=== PATIENT | female | born 1960 | race Caucasian/White ===

== ENCOUNTER 2021-02-15 10:18 | Inpatient (IN) ==
[2021-02-15] MEDS ORDERED: MoRPHine SULFATE 4 MG/ML 1 ML CARP\\VIAL IV STA ×2 (11:46→15:37)
[2021-02-15] MEDS ORDERED: ONDANSETRON INJ 2 MG/ML 2 ML VIAL IV STA (11:46)
--- NOTE | 2021-02-15 11:52 | Emergency Department Note ---
History of Present Illness General Chief complaint: Back Injury/Pain Stated complaint: BACK PAIN Time Seen by Provider: 02/15/21 11:33 Source: patient Mode of arrival: ambulatory Limitations: no limitations History of Present Illness Maximum Pain Intensity: 10 This patient is a 60-year-old female who is status post lumbar surgery on Tuesday. This was done by Dr. Gasca. She tells me she had a significant disc protrusion at L3-4 on the left. She started having pain down her left leg again on Tuesday or Tuesday but got worse on Tuesday. It hurts when she moves. She does finish her course of steroids and started Neurontin yesterday. She is been using Ultram and Percocet for pain. She talk to Dr. Gsaca who sent her to the ER in 1 to get an MRI. He did call ahead. She has had no change in bowel or bladder function no dysuria hematuria she is had the Covid vaccine. No chest pain shortness of breath or abdominal pain. No shortness of breath. She is not driving Home Medications Medication Instructions Recorded Confirmed Type levothyroxine 75 mcg tablet 75 mcg PO QAM 01/14/20 02/15/21 History rizatriptan 10 mg disintegrating 10 mg PO Q2H PRN 01/14/20 02/15/21 History tablet (Maxalt-WEBBING SUPERVISOR) multivitamin 1 tab PO QAM 03/18/20 02/15/21 History rosuvastatin 5 mg tablet (Crestor) 5 mg PO HS 02/05/21 02/15/21 History oxycodone 5 mg tablet 5 mg PO Q6H PRN #20 tab 02/09/21 02/15/21 Rx tramadol 50 mg tablet 50 mg PO Q6H PRN #20 tab 02/09/21 02/15/21 Rx gabapentin 300 mg capsule 300 mg PO BID 02/15/21 02/15/21 History oxycodone 5 mg tablet 5 mg PO Q6H PRN #30 tab 02/17/21 Rx tramadol 50 mg tablet 50 mg PO Q6H PRN #30 tab 02/17/21 Rx Allergies Allergy/AdvReac Type Severity Reaction Status Date / Time Sulfa (Sulfonamide Allergy Intermediate rash Verified 02/09/21 07:03 Antibiotics) Past Med/Surg History Medical History (Updated 02/16/21 @ 12:26 by Marisa Asencio PA-C) Hx of basal cell carcinoma ARM/NOSE Hyperlipidemia Hypothyroidism Migraine Osteoarthritis Surgical History H/O breast biopsy 2018 right breast (BENIGN) H/O tubal ligation History of breast augmentation History of colonoscopy History of femoral hernia repair Left femoral hernia repair [place]03/25/20): [place] [facility] [place] of repair of ACL Left S/P left knee arthroscopy S/P Mohs surgery for basal cell carcinoma Family History Father Parkinson's disease Mother Lupus Stroke Grandmother (Paternal) Diabetes Breast cancer Grandmother (Maternal) Colorectal cancer Other No family history of adverse response to anesthesia Social History Smoking Status: Never smoker Second Hand Exposure: No; Hx Alcohol Use: Yes Alcohol type: beer and wine Hx Substance Use: No Preferred Language: Martiniquais Communication Ability: Effective End User Consultant Required: No Beliefs That Will Affect Care: None marital status: Current Living Situation: Spouse current occupational status: employed current occupation: RN How many Children do You have: 2 Other Information That Helps Us Care for You: No Feels Safe at Home: Yes Safety Concerns: Feels Safe At This Time Assistive Devices: None Review of Systems A total of 10 systems reviewed and were otherwise negative Physical Exam Vital Signs Vital Signs - 24 hr 02/15/21 10:23 02/15/21 12:11 Temperature 36.8 C Temperature Source Temporal Artery Scan Pulse Rate 87 Pulse Rate [Finger] 79 Respiratory Rate 18 18 Blood Pressure 152/83 H Blood Pressure [Right Arm] 134/79 Blood Pressure Mean 106 Blood Pressure Mean [Right Arm] 97 Blood Pressure Position Sitting Pulse Oximetry 98 100 Oxygen Delivery Method Room Air Room Air Sepsis Recent Fever Within 48 Hours No Sepsis New/Unexplained Change in Mental Status No Sepsis Action Taken by Nursing No Action Required General: Well developed well nourished middle-aged female who appears in no acute distress, breathing comfortably on room air. Normal speech HEENT: Normal cephalic atraumatic. Pupils are equal round and reactive to light. Extraocular movements are intact. Oropharynx is pink with moist mucous membranes. No swelling of the mouth lips or tongue. Neck: Supple with a midline trachea. No meningeal signs or stiffness, no JVD or bruits. No Stridor. Chest: Clear to auscultation bilaterally. No wheezes or rhonchi. No increased work of breathing. Heart: Regular rate and rhythm without murmurs or gallops. Abdomen: Soft nontender, nondistended without rebound guarding or rigidity. Extremities: No cyanosis clubbing or edema. No calf tenderness or assymetry Spine/Back. Non tender to palpation. No CVA tenderness. Normal-appearing healing postop incision in the left central lower lumbar area. Intact Steri-S trips. no redness warmth or fluctuance Skin: Good turgor without rashes. Neurologic exam: Cranial nerves two through 12 are intact. Motor and sensation are intact and symmetrical throughout. Normal motor and sensation in the legs however she feels subjectively numb on the left anterior thigh compared to the right. Her patellar reflex may be slightly diminished on the left compared to the right but good Achilles reflexes Course Administered Medications Discontinued Medications Bupivacaine HCl (Bupivacaine 0.5 % 5 Mg/1 Ml Mpf 30ml Vial) Confirm Administered Dose 30 ml .ROUTE .STK-MED ONE Stop: 02/16/21 12:17 Last Admin: 02/16/21 13:05 Dose: 25 ml Documented by: [id number] Cefazolin Sodium (Cefazolin 250 Mg/Ml 1 Gm Vial) Confirm Administered Dose 1,000 mg .ROUTE .STK-MED ONE Stop: 02/16/21 12:17 Last Admin: 02/16/21 13:29 Dose: 1,000 mg Documented by: [id number] Epinephrine HCl (Epinephrine Inj 1 Mg/Ml Amp) Confirm Administered Dose 1 mg .ROUTE .STK-MED ONE Stop: 02/16/21 12:17 Last Admin: 02/16/21 13:05 Dose: 0.15 mg Documented by: [id number] Gabapentin (Gabapentin 300 Mg Cap) 300 mg PO BID MIGUEL Stop: 03/17/21 20:59 Last Admin: 02/18/21 08:32 Dose: 300 mg Documented by: [id number] Admin: 02/17/21 20:19 Dose: 300 mg Documented by: [id number] Admin: 02/17/21 10:21 Dose: 300 mg Documented by: [id number] Admin: 02/16/21 20:21 Dose: 300 mg Documented by: [id number] Admin: 02/16/21 10:35 Dose: Not Given Documented by: [id number] Admin: 02/15/21 20:57 Dose: 300 mg Documented by: [id number] Gadobutrol (Gadobutrol 30ml Vial) 6.8 ml IV ONCE ONE Stop: 02/15/21 13:59 Last Admin: 02/15/21 13:59 Dose: 6.8 ml Documented by: [id number] Hydromorphone HCl (Hydromorphone Inj 1 Mg/Ml Syringe) 1 mg IV Q3H PRN PRN Reason: severe pain (scale 7-10) Stop: 03/01/21 18:50 Last Admin: 02/16/21 10:12 Dose: 1 mg Documented by: [id number] Admin: 02/16/21 05:56 Dose: 1 mg Documented by: [id number] Admin: 02/15/21 20:28 Dose: 1 mg Documented by: [id number] Hydromorphone HCl (Hydromorphone Inj 1 Mg/Ml Syringe) 0.25 mg IV Q5M PRN PRN Reason: PACU Use Only-Pain Stop: 02/16/21 20:26 Last Admin: 02/16/21 15:10 Dose: 0.25 mg Documented by: [id number] Admin: 02/16/21 15:00 Dose: 0.25 mg Documented by: [id number] Admin: 02/16/21 14:53 Dose: 0.25 mg Documented by: [id number] Admin: 02/16/21 14:44 Dose: 0.25 mg Documented by: [id number] Cefazolin Sodium (Ancef 2000mg) 2,000 mg in 15 mls @ 3.75 mls/min IV PREOP MIGUEL; Protocol Stop: 02/17/21 05:59 Last Admin: 02/16/21 12:36 Dose: 3.75 mls/min Documented by: [id number] Lactated Ringer's (Lr) 1,000 mls @ 100 mls/hr IV .Q10H MIGUEL Stop: 03/17/21 18:50 Last Infusion: 02/17/21 19:25 Dose: 0 mls/hr Documented by: [id number] Admin: 02/17/21 10:21 Dose: Not Given Documented by: [id number] Infusion: 02/17/21 09:06 Dose: 100 mls/hr Documented by: [id number] Admin: 02/16/21 22:59 Dose: 100 mls/hr Documented by: [id number] Infusion: 02/16/21 16:16 Dose: 100 mls/hr Documented by: [id number] Admin: 02/16/21 15:56 Dose: Not Given Documented by: [id number] Admin: 02/16/21 06:16 Dose: 100 mls/hr Documented by: [id number] Infusion: 02/16/21 06:16 Dose: 100 mls/hr Documented by: [id number] Admin: 02/15/21 20:58 Dose: 100 mls/hr Documented by: [id number] Cefazolin Sodium (Ancef 1000mg) 1,000 mg in 7.5 mls @ 2.5 mls/min IV Q8H MIGUEL; Protocol Stop: 02/17/21 04:32 Last Admin: 02/17/21 05:40 Dose: 2.5 mls/min Documented by: [id number] Admin: 02/16/21 20:20 Dose: 2.5 mls/min Documented by: [id number] Dexamethasone 8 mg/ Syringe 2 mls @ 1 mls/min IV DAILY MIGUEL Stop: 02/19/21 09:01 Last Admin: 02/18/21 08:31 Dose: 1 mls/min Documented by: [id number] Admin: 02/17/21 09:18 Dose: 1 mls/min Documented by: [id number] Lactated Ringer's (Lr) 1,000 mls @ 100 mls/hr IV .Q10H MIGUEL Stop: 03/18/21 15:49 Last Admin: 02/17/21 07:21 Dose: Not Given Documented by: [id number] Admin: 02/16/21 16:42 Dose: Not Given Documented by: [id number] Levothyroxine Sodium (Levothyroxine Sodium 75 Mcg Tablet) 75 mcg PO DAILYBB MIGUEL Stop: 03/18/21 06:29 Last Admin: 02/18/21 06:13 Dose: 75 mcg Documented by: [id number] Admin: 02/17/21 05:59 Dose: 75 mcg Documented by: [id number] Admin: 02/16/21 04:36 Dose: Not Given Documented by: [id number] Lorazepam (Lorazepam 0.5 Mg Tab) 0.5 mg PO Q8H PRN PRN Reason: sedation/anxiety Stop: 03/17/21 18:50 Last Admin: 02/17/21 20:27 Dose: 0.5 mg Documented by: [id number] Admin: 02/15/21 23:47 Dose: 0.5 mg Documented by: [id number] Miscellaneous ( Floseal Hemostatic Matrix 10ml) 20 ml TOP ONCE ONE Stop: 02/16/21 13:31 Last Admin: 02/16/21 14:01 Dose: 20 ml Documented by: [id number] Morphine Sulfate (Morphine Sulfate 4 Mg/Ml 1 Ml Carp\Vial) 4 mg IV NOW STA Stop: 02/15/21 11:47 Last Admin: 02/15/21 12:06 Dose: 4 mg Documented by: [id number] Morphine Sulfate (Morphine Sulfate 4 Mg/Ml 1 Ml Carp\Vial) 4 mg IV NOW STA Stop: 02/15/21 15:38 Last Admin: 02/15/21 16:07 Dose: 4 mg Documented by: [id number] Multivitamins (Multivitamin Tab) 1 tab PO QAM [facility] Stop: 03/18/21 08:59 Last Admin: 02/18/21 08:32 Dose: 1 tab Documented by: [id number] Admin: 02/17/21 09:18 Dose: 1 tab Documented by: [id number] Admin: 02/16/21 10:36 Dose: Not Given Documented by: [id number] Ondansetron HCl (Ondansetron Inj 2 Mg/Ml 2 Ml Vial) 4 mg IV NOW STA Stop: 02/15/21 11:47 Last Admin: 02/15/21 12:06 Dose: 4 mg Documented by: [id number] Ondansetron HCl (Ondansetron Inj 2 Mg/Ml 2 Ml Vial) 4 mg IV Q6H PRN PRN Reason: Nausea &/or Vomiting Stop: 03/17/21 18:50 Last Admin: 02/16/21 10:14 Dose: 4 mg Documented by: [id number] Oxycodone HCl (Oxycodone Hcl Ir 5 Mg Tab (Immediate Release)) 5 - 10 mg PO Q4H PRN PRN Reason: mod to severe pain Stop: 03/01/21 18:50 Last Admin: 02/18/21 03:05 Dose: 10 mg Documented by: [id number] Admin: 02/17/21 20:27 Dose: 5 mg Documented by: [id number] Admin: 02/15/21 23:44 Dose: 10 mg Documented by: [id number] Polyethylene Glycol (Polyethylene (Miralax) 17 Gm Pack) 17 gm PO Q6 MIGUEL Stop: 03/19/21 05:59 Last Admin: 02/18/21 06:13 Dose: 17 gm Documented by: [id number] Admin: 02/18/21 01:02 Dose: 17 gm Documented by: [id number] Admin: 02/17/21 18:06 Dose: 17 gm Documented by: [id number] Admin: 02/17/21 12:57 Dose: 17 gm Documented by: [id number] Admin: 02/17/21 05:39 Dose: 17 gm Documented by: [id number] Rosuvastatin Calcium (Rosuvastatin Calcium 5 Mg Tab) 5 mg PO HS MIGUEL Stop: 03/17/21 20:59 Last Admin: 02/17/21 20:19 Dose: 5 mg Documented by: [id number] Admin: 02/16/21 21:23 Dose: 5 mg Documented by: [id number] Admin: 02/15/21 20:57 Dose: 5 mg Documented by: [id number] Senna/Docusate Sodium (Docusate Sodium/Senna 50/8.6mg Tab) 2 tab PO HS MIGUEL Stop: 03/17/21 20:59 Last Admin: 02/17/21 20:19 Dose: 2 tab Documented by: [id number] Admin: 02/16/21 20:20 Dose: 2 tab Documented by: [id number] Admin: 02/15/21 20:57 Dose: 2 tab Documented by: [id number] Senna/Docusate Sodium (Docusate Sodium/Senna 50/8.6mg Tab) 2 tab PO HS MIGUEL Stop: 03/18/21 20:59 Last Admin: 02/17/21 20:29 Dose: Not Given Documented by: [id number] Admin: 02/16/21 20:20 Dose: Not Given Documented by: [id number] Tramadol HCl (Tramadol Hcl 50 Mg Tablet) 50 - 100 mg PO Q4H PRN PRN Reason: Moderate-Severe pain & Pre PT Stop: 03/17/21 18:50 Last Admin: 02/18/21 11:05 Dose: 100 mg Documented by: [id number] Admin: 02/17/21 22:22 Dose: 50 mg Documented by: [id number] Admin: 02/17/21 12:57 Dose: 100 mg Documented by: [id number] Admin: 02/17/21 05:39 Dose: 100 mg Documented by: [id number] Admin: 02/16/21 20:30 Dose: 100 mg Documented by: [id number] Admin: 02/16/21 16:46 Dose: 100 mg Documented by: [id number] Medical Decision Making Differential Diagnosis Postop infection, postop complication, hematoma, disc disease, electrolyte or metabolic abnormality Medical Records Attestation: I reviewed the patient's medical records. Home Medications Current Medication List: was personally reviewed by me Laboratory Data Attestation: I reviewed the patient's lab results. Result diagrams: 02/18/21 08:49 02/18/21 08:49 Lab Results 02/15/21 02/15/21 02/15/21 Range/Units 12:03 12:03 12:03 WBC 8.29 (4.8-10.8) K/uL RBC 4.94 (4.2-5.4) M/uL Hgb 13.8 (12.0-16.0) g/dL Hct 42.1 (37-47) % MCV 85.2 (80-100) fL MCH 27.9 (25-34) pg MCHC 32.8 (32-36) g/dL RDW Std Deviation 40.7 (36.4-46.3) fL RDW Coeff of Lynette 13.1 (11.5-14.5) % Plt Count 272 (130-400) K/uL MPV 9.8 (7.4-10.4) fL Immature Gran % (Auto) 0.7 % Neut % (Auto) 61.0 % Lymph % (Auto) 28.5 % [place] % (Auto) 7.5 % Eos % (Auto) 1.9 % Baso % (Auto) 0.4 % Neut # (Auto) 5.06 (1.4-6.5) K/uL Lymph # (Auto) 2.36 (1.2-3.4) K/uL [place] # (Auto) 0.62 H (0.11-0.59) K/uL Eos # (Auto) 0.16 (0-0.5) K/uL Baso # (Auto) 0.03 (0-0.2) K/uL Immature Gran # (Auto) 0.06 H (0.00-0.02) K/uL Sodium 136 (136-145) mmol/L Potassium 4.0 (3.5-5.1) mmol/L Chloride 105 (98-107) mmol/L Carbon Dioxide 29 (21-32) mmol/L Anion Gap 2.0 L (3-11) BUN 14 (7-18) mg/dl Creatinine 0.90 (0.6-1.2) mg/dl Est Cr Clr Drug Dosing 62.5 ml/min Est GFR ( Amer) 80.0 ml/min Est GFR (Non-Af Amer) 69.0 ml/min BUN/Creatinine Ratio 15.6 (10-20) Glucose 120 H (70-99) mg/dl Calcium 9.4 (8.5-10.1) mg/dl Total Bilirubin 0.5 (0.2-1) mg/dl AST 21 (15-37) U/L ALT 45 (12-78) U/L Alkaline Phosphatase 87 (45-117) U/L C-Reactive Protein 0.37 H (0-0.29) mg/dl Total Protein 7.8 (6.4-8.2) gm/dl Albumin 4.1 (3.4-5.0) gm/dl Globulin 3.7 (2.5-4.0) gm/dl Albumin/Globulin Ratio 1.1 (0.9-2) Lipase 91 (73-393) U/L Urine Color Yellow Urine Appearance Clear (Clear) Urine pH 7.5 (4.5-7.5) Ur Specific [place] 1.006 (1.000-1.030) Urine Protein Negative (Negative) Urine Glucose (UA) Negative (Negative) Urine Ketones Negative (Negative) Urine Blood Negative (Negative) Urine Nitrite Negative (Negative) Urine Bilirubin Negative (Negative) Urine Urobilinogen Negative (Negative) Ur Leukocyte Esterase Negative (Negative) Imaging Data Radiologist's Impression: Lumbar Spine MRI 02/15/21 11:46 MR lumbar spine wo/w con CLINICAL HISTORY: Status post discectomy this past Tuesday at L3-L4. Now complaining of low back pain with left leg pain. TECHNIQUE: 3 plane localizer images, sagittal T2, sagittal T1, sagittal STIR, axial T1, axial T2 along with postcontrast axial T1 and sagittal T1 fat- saturated sequences were obtained of the lumbar spine, before and after intravenous administration of 12 mL of MultiHance. Comparison: None available at the time of this dictation. FINDINGS: The alignment is anatomical. Multilevel degenerative changes are seen. L1-L2: No neuroforaminal or canal stenosis. L2-L3: Small posterior disc bulge results in mild spinal stenosis. No neuroforaminal stenosis is seen. L3-L4: Postsurgical changes of discectomy are seen. There is relief of previously noted left neuroforaminal stenosis. A small posterior disc bulge results in mild canal stenosis. L4-L5: Midline posterior disc bulge results in moderate spinal stenosis. No neuroforaminal stenosis. L5-S1: No neuroforaminal or canal stenosis. The spinal ligaments are intact, without evidence of disruption or abnormal signal intensity. The spinal cord is normal in signal intensity and there is no evidence of cord contusion. There is no evidence of an extradural, intradural, extramedullary or intramedullary lesion. Postoperative edema is seen in the posterior midline and left paraspinal musculature. Incidental note is made of parapelvic cysts in the bilateral kidneys. IMPRESSION: Status post discectomy with overall improvement in the left neuroforaminal stenosis. There is surrounding soft tissue edema at the surgical site which may potentially result in transient impingement on the L3-L4 left spinal root. No evidence of infectious abnormality. ACT 112: Negative or not required by law. Electronically signed by: Ian Jin M.D. 02/15/2021 2:26 PM MDM Narrative This patient comes in complaining of back pain radiating down the left leg. She is postop. She called and talked to Dr. Gasca who sent her to the ER for evaluation of an MRI. I asked established she was given morphine 4 mg IV and Zofran 4 mg IV for pain and nausea management. She was placed on a cafeteria monitor. I did order blood work and an MRI. She has no white count or fever discussed infection. She has normal electrolyte and metabolic testing. Urinaly sis does not suggest a UTI. The MRI does show some swelling around the L3-4 nerve root. I discussed the case with Dr. Gasca who promptly came in and saw the patient. He is concerned about recurrent disc is going to admit the patient for further operative care. Continuous cardiac monitoring: Given the fact that she was getting narcotic pain medication an order was placed in EMR for continuous cardiac monitoring. Upon interpretation patient was reviewed normal sinus rhythm with a rate of 75 Impression & Plan Back pain, Status post lumbar discectomy Discharge Plan Visit Data Chief Complaint: Back Injury/Pain Stated Complaint: BACK PAIN ED Provider: Devon Esquivel Discharge Problem: Back pain, Status post lumbar discectomy Patient Disposition: Admitted As Inpatient Discharge Instructions Interventions: ED Discharge Assessment Last Done: 02/15/21 18:21 Discharge Problem: Back pain Qualifiers: Back pain location: low back pain Chronicity: acute Back pain laterality: left Sciatica presence: with sciatica Sciatica laterality: sciatica of left side Qualified Code(s): M54.42 - Lumbago with sciatica, left side
[2021-02-15 12:12] LABS: Basophils # (auto) 0.03 K/uL (0-0.2); Basophils % (auto) 0.4 %; Eosinophils # (auto) 0.16 K/uL (0-0.5); Eosinophils % (auto) 1.9 %; Hematocrit (blood only) 42.1 % (37-47); Hemoglobin 13.8 g/dL (12.0-16.0); Immature Granulocytes # (auto) 0.06 K/uL (0.00-0.02); Immature Granulocytes % (auto) 0.7 %; Lymphocytes # (auto) 2.36 K/uL (1.2-3.4); Lymphocytes % (auto) 28.5 %; Mean Corpuscular Hemoglobin 27.9 pg (25-34); Mean Corpuscular Hgb Conc 32.8 g/dL (32-36); Mean Corpuscular Volume 85.2 fL (80-100); Mean Platelet Volume 9.8 fL (7.4-10.4); Monocytes # (auto) 0.62 K/uL (0.11-0.59); Monocytes % (auto) 7.5 %; Neutrophils # (auto) 5.06 K/uL (1.4-6.5); Platelet Count 272 K/uL (130-400); RDW Coefficient of Variation 13.1 % (11.5-14.5); RDW Standard Deviation 40.7 fL (36.4-46.3); Red Blood Count 4.94 M/uL (4.2-5.4); White Blood Count 8.29 K/uL (4.8-10.8)
[2021-02-15 12:20] LABS: Appearance Urine Clear (Clear); Bilirubin Urine Negative (Negative); Blood Urine Negative (Negative); Color Urine Yellow; Glucose Urine UA Negative (Negative); Ketones Urine Negative (Negative); Leukocyte Esterase Urine Negative (Negative); Nitrite Urine Negative (Negative); Protein Urine Negative (Negative); Specific Gravity Urine 1.006 (1.000-1.030); Urobilinogen Urine Negative (Negative); pH Urine 7.5 (4.5-7.5)
[2021-02-15 12:31] LABS: Albumin Level 4.1 gm/dl (3.4-5.0); BUN Creatinine Ratio 15.6 (10-20); Calcium 9.4 mg/dl (8.5-10.1); Creatinine Clr Calc Pharmacy 62.5 ml/min
[2021-02-15 12:33] LABS: Albumin Globulin Ratio 1.1 (0.9-2); Bilirubin,Total 0.5 mg/dl (0.2-1); C Reactive Protein 0.37 mg/dl (0-0.29); Globulin 3.7 gm/dl (2.5-4.0); Total Protein 7.8 gm/dl (6.4-8.2)
[2021-02-15] MEDS ORDERED: GADOBUTROL 30ML VIAL IV ONE (13:58)
--- NOTE | 2021-02-15 14:27 | Magnetic Resonance Report ---
MR lumbar spine wo/w con CLINICAL HISTORY: Status post discectomy this past Tuesday at L3-L4. Now complaining of low back pain with left leg pain. TECHNIQUE: 3 plane localizer images, sagittal T2, sagittal T1, sagittal STIR, axial T1, axial T2 sujit g with postcontrast axial T1 and sagittal T1 fat-saturated sequences were obtained of the lumbar spin e, before and after intravenous administration of 12 mL of MultiHance. Comparison: None available at the time of this dictation. FINDINGS: The alignment is anatomical. Multilevel degenerative changes are seen. L1-L2: No neuroforaminal or canal stenosis. L2-L3: Small posterior disc bulge results in mild spinal stenosis. No neuroforaminal stenosis is seen . L3-L4: Postsurgical changes of discectomy are seen. There is relief of previously noted left neurofor aminal stenosis. A small posterior disc bulge results in mild canal stenosis. L4-L5: Midline posterior disc bulge results in moderate spinal stenosis. No neuroforaminal stenosis. L5-S1: No neuroforaminal or canal stenosis. The spinal ligaments are intact, without evidence of disruption or abnormal signal intensity. The spi nal cord is normal in signal intensity and there is no evidence of cord contusion. There is no eviden ce of an extradural, intradural, extramedullary or intramedullary lesion. Postoperative edema is seen in the posterior midline and left paraspinal musculature. Incidental note is made of parapelvic cyst s in the bilateral kidneys. IMPRESSION: Status post discectomy with overall improvement in the left neuroforaminal stenosis. There is surroun ding soft tissue edema at the surgical site which may potentially result in transient impingement on the L3-L4 left spinal root. No evidence of infectious abnormality. ACT 112: Negative or not required by law. Electronically signed by: Ian Jin M.D. 02/15/2021 2:26 PM
--- NOTE | 2021-02-15 16:00 | History & Physical Report ---
Date of Service February 15, 2021 Assessment & Plan (1) Lumbar disc herniation with radiculopathy: Plan: Assessment recurrent disc herniation L3-L4 on the left with foraminal encroachment. Plan at a lengthy discussion today with the patient and her reviewing her updated MRI findings and clinical presentation. At this time the MRI does continue to demonstrate evidence of foraminal disc herniation. Postoperative course is consistent with this as she had several days of marked improvement of her pain with sudden onset of severe pain and weakness. She does presents with significant neuro deficit to left lower extremity. I discussed treatment options with consist of continued pain management versus revision surgery. Surgery require complete discectomy and fusion L3-L4. In light of her recurrent disc this would be the safest way to approach her problem for definitive treatment. Risk benefits pros cons of turns were outlined in detail. I will admit her to the hospital today she will be made n.p.o. after midnight we will try for surgery tomorrow. History of Present Illness Chief Complaint: Left leg pain with weakness Primary Care Provider: Layla Duran MD This this is a 60-year-old female status post far lateral discectomy L3-L4 on the left approximate week ago. Postoperatively she was doing well for approximately 3 days but then had the sudden onset of severe pain with now developing weakness into the left quadricep. She is unable to ambulate and ascend or descend stairs secondary to weakness. The pain is incapacitating nature. She is been taking Neurontin oxycodone and tramadol without any improvement in pain or function. The right lower extremity asymptomatic. Allergies Allergy/AdvReac Type Severity Reaction Status Date / Time Sulfa (Sulfonamide Allergy Intermediate rash Verified 02/09/21 07:03 Antibiotics) Home Medications Medication Instructions Recorded Confirmed Type levothyroxine 75 mcg tablet 75 mcg PO QAM 01/14/20 02/15/21 History rizatriptan 10 mg disintegrating 10 mg PO Q2H PRN 01/14/20 02/15/21 History tablet (Maxalt-SILVER LAP MACHINE TENDER) multivitamin 1 tab PO QAM 03/18/20 02/15/21 History rosuvastatin 5 mg tablet (Crestor) 5 mg PO HS 02/05/21 02/15/21 History oxycodone 5 mg tablet 5 mg PO Q6H PRN #20 tab 02/09/21 02/15/21 Rx tramadol 50 mg tablet 50 mg PO Q6H PRN #20 tab 02/09/21 02/15/21 Rx gabapentin 300 mg capsule 300 mg PO BID 02/15/21 02/15/21 History Past Med/Surg History Medical History Hx of basal cell carcinoma ARM/NOSE Hyperlipidemia Hypothyroidism Migraine Osteoarthritis Surgical History H/O breast biopsy 2011, 2018 right breast (BENIGN) H/O tubal ligation History of breast augmentation History of colonoscopy History of femoral hernia repair Left femoral hernia repair (03/25/20): LMA#4 at [facility] [place] History of repair of ACL Left S/P left knee arthroscopy S/P Mohs surgery for basal cell carcinoma Family History Father Parkinson's disease Mother Lupus Stroke Grandmother (Paternal) Diabetes Breast cancer Grandmother (Maternal) Colorectal cancer Other No family history of adverse response to anesthesia Social History Smoking Status: Never smoker Second Hand Exposure: No; Hx Alcohol Use: Yes Alcohol type: beer and wine Preferred Language: Urugu[place] Communication Ability: Effective Butcher Supervisor Required: No Beliefs That Will Affect Care: None marital status: Current Living Situation: Spouse current occupational status: employed current occupation: RN How many Children do You have: 3 Feels Safe at Home: Yes Assistive Devices: None Physical Exam Physical Exam: Patient is in obvious distress. She prefers to have her left leg propped up on a pillow while lying supine. She exhibits +5-5 right dorsiflexion extensor pollicis longus quadricep sensory intact on the left she has a 3+/5 left quadriceps with a 5 or 5 extensor hallucis longus dorsiflexion plantarflexion. Deep to reflexes absent. Results & Data ([facility]) Vital Signs (Past 12 Hours) Vital Signs Temp Pulse Pulse Resp BP BP Pulse Ox 02/15/21 14:12 85 14 112/72 98 02/15/21 12:48 73 14 137/83 100 02/15/21 12:11 79 18 134/79 100 02/15/21 10:23 36.8 C 87 18 152/83 H 98 Code Status & VTE Plan VTE Prophylaxis Plan VTE Prophylaxis will be ordered: Yes
[2021-02-15] MEDS ORDERED: NALOXONE HCL 0.4 MG/1 ML VIAL/CARP IV PRN (18:51)
[2021-02-15] MEDS ORDERED: HYDROmorphone INJ 0.5 MG/0.5 ML SYR IV PRN (18:51)
[2021-02-15] MEDS ORDERED: ONDANSETRON INJ 2 MG/ML 2 ML VIAL IV PRN (18:51)
[2021-02-15] MEDS ORDERED: PROMETHAZINE HCL 12.5 MG in SODIUM CHLORIDE 0.9% 50 ML IV PRN (18:51)
[2021-02-15] MEDS ORDERED: LORazepam 0.5 MG/1 ML VIAL IV PRN (18:51)
[2021-02-15] MEDS ORDERED: hydrOXYzine HCl 25 MG TAB PO PRN (18:51)
[2021-02-15] MEDS ORDERED: ALUMINUM/MAGNESIUM SUSP 30 ML UDC PO PRN (18:51)
[2021-02-15] MEDS ORDERED: MAGNESIUM HYDROXIDE SUSP 30 ML UDC PO PRN (18:51)
[2021-02-15] MEDS ORDERED: ACETAMINOPHEN 1,000 MG/100 ML VIAL IV PRN (18:51)
[2021-02-15] MEDS ORDERED: diphenhydrAMINE Capsule 25 MG CAP PO PRN (18:51)
[2021-02-15] MEDS ORDERED: ACETAMINOPHEN 500 MG TAB PO PRN (18:51)
[2021-02-15] MEDS ORDERED: METOCLOPRAMIDE HCL INJ 5 MG/ML 2 ML VIAL IV PRN (18:51)
[2021-02-15] MEDS ORDERED: ONDANSETRON 4 MG OD TAB PO PRN (18:51)
--- NOTE | 2021-02-15 19:16 | Anesthesiology Consultation ---
Date of Service February 15, 2021 Assessment & Plan Chart Review Chart Review: Acceptable Risk for Surgery and Patient NOT seen in Pre Admission Testing Consults Requested none ASA ASA2 Proposed Anesthesia Anesthesia Type: General Additional Comments: covi test negative History Height/Weight Height: 5 ft 4 in Weight: 68.7 kg Allergies Allergy/AdvReac Type Severity Reaction Status Date / Time Sulfa (Sulfonamide Allergy Intermediate rash Verified 02/09/21 07:03 Antibiotics) Medications Home Medications Medication Instructions Recorded Confirmed Last Taken levothyroxine 75 mcg tablet 75 mcg PO QAM 01/14/20 02/15/21 02/15/21 rizatriptan 10 mg disintegrating 10 mg PO Q2H PRN 01/14/20 02/15/21 Unknown tablet (Maxalt-[employer]) multivitamin 1 tab PO QAM 03/18/20 02/15/21 02/15/21 rosuvastatin 5 mg tablet (Crestor) 5 mg PO HS 02/05/21 02/15/21 02/14/21 oxycodone 5 mg tablet 5 mg PO Q6H PRN #20 tab 02/09/21 02/15/21 02/15/21 tramadol 50 mg tablet 50 mg PO Q6H PRN #20 tab 02/09/21 02/15/21 02/14/21 gabapentin 300 mg capsule 300 mg PO BID 02/15/21 02/15/21 02/14/21 Past Medical History Medical History Hx of basal cell carcinoma ARM/NOSE Hyperlipidemia Hypothyroidism Migraine Osteoarthritis Exercise / Class Metabolic Activity II 4-5 Yardwork/Stairs/Walk up hill Past Family History Family History Father Parkinson's disease Mother Lupus Stroke Grandmother (Paternal) Diabetes Breast cancer Grandmother (Maternal) Colorectal cancer Other No family history of adverse response to anesthesia Past Surgical History Surgical History H/O breast biopsy 2011, 2018 right breast (BENIGN) H/O tubal ligation History of breast augmentation History of colonoscopy History of femoral hernia repair Left femoral hernia repair (03/25/20): LMA#4 at [facility] History of repair of ACL Left S/P left knee arthroscopy S/P Mohs surgery for basal cell carcinoma Past Anesthesia History No Hx of Anesthesia Complications and No Family Hx of Anesthesia Complications History of PONV No Hx of PONV and No Hx of Motion Sickness Social History Smoking Status: Never smoker Hx Alcohol Use: Yes Alcohol type: beer and wine alcohol intake frequency: a few times a week substance use type: does not use Physical Exam Vital Signs Last Vital Signs Temp 36.8 C 02/15/21 10:23 Pulse 79 02/15/21 17:58 Resp 14 02/15/21 17:58 BP 114/72 02/15/21 17:58 Pulse Ox 97 02/15/21 17:58 Testing Laboratory Results 02/15/21 12:03 02/15/21 12:03 Urine Color Yellow 02/15/21 12:03 Urine Appearance Clear (Clear) 02/15/21 12:03 Urine pH 7.5 (4.5-7.5) 02/15/21 12:03 Ur Specific [place] 1.006 (1.000-1.030) 02/15/21 12:03 Urine Protein Negative (Negative) 02/15/21 12:03 Urine Glucose (UA) Negative (Negative) 02/15/21 12:03 Urine Ketones Negative (Negative) 02/15/21 12:03 Urine Nitrite Negative (Negative) 02/15/21 12:03 Ur Leukocyte Esterase Negative (Negative) 02/15/21 12:03 Electrocardiogram Date: 12/15/20 Findings: + NSR @ (at 81) Chest X-Ray Date: 12/15/20 Findings: + NAD
[2021-02-15] MEDS ORDERED: RIZATRIPTAN BENZOATE MLT 10 MG TAB PO PRN (19:45)
[2021-02-15] MEDS: HYDROmorphone INJ 1 MG/ML SYRINGE IV PRN (20:28)
[2021-02-15] MEDS: ROSUVASTATIN CALCIUM 5 MG TAB PO SCH (20:57)
[2021-02-15] MEDS: GABAPENTIN 300 MG CAP PO SCH (20:57)
[2021-02-15] MEDS: DOCUSATE SODIUM/SENNA 50/8.6MG TAB PO SCH (20:57)
[2021-02-15] MEDS: LACTATED RINGER'S 1,000 ML IV SCH (20:58)
--- NOTE | 2021-02-15 23:12 | Consultation Report ---
DATE OF CONSULT: 02/15/2021. CHIEF COMPLAINT: Back pain. HISTORY OF PRESENT ILLNESS: This is a 60-year-old female with past medical history significant for hypothyroidism, hyperlipidemia, osteoarthritis, history of Raynaud's phenomenon, who was admitted for elective back surgery. The patient is having back pain since last one year and also having bilateral lower extremity weakness, but she is able to ambulate okay.Recently had back surgery for lumbar disc herniation seems the disc bulge recurred and planning for repeat surgery in am. Denies any chest pain, no shortness of breath, no cough, no nausea, no vomiting, no abdominal pain, no headache, no blurred visions, no earache, no sore throat. Normal bowel and bladder movements. ALLERGIES: SULFA ANTIBIOTICS. PAST MEDICAL HISTORY: As mentioned above. PAST SURGICAL HISTORY: Breast biopsy, bilateral breast enhancement. MEDICATIONS: The patient is on gabapentin 300 mg p.o. b.i.d., levothyroxine 75 mcg p.o. daily, multivitamin one tablet p.o. daily, oxycodone 5 mg p.o. q. 6 hours p.r.n., rizatriptan 10 mg p.r.n., Crestor 5 mg p.o. at bedtime, tramadol 50 mg p.o. q. 6 hours p.r.n. FAMILY HISTORY: Significant for paternal grandmother with breast cancer. SOCIAL HISTORY: , no smoking. Alcohol occasional. No drug use. REVIEW OF SYSTEMS: As per HPI. Rest of review of systems is negative. PHYSICAL EXAMINATION: GENERAL: The patient is of moderate build, not in acute distress. VITAL SIGNS: Temperature 36.8, pulse 79, respiratory rate 14, blood pressure 114/72, oxygen 97% on room air. HEENT: Head is atraumatic. NECK: No JVD or neck masses. CARDIOVASCULAR: S1 and S2 heard. Regular rate and rhythm. No murmur, no gallop. RESPIRATORY SYSTEM: Normal AP diameter. No accessory muscle use. No wheezing, no crackles. ABDOMEN: Soft, bowel sounds present, nontender, no distention. CENTRAL NERVOUS SYSTEM: Alert and awake. Speech is clear. No facial droop. Obeys simple commands. Moves extremities. EXTREMITIES: Right and left lower extremity weakness present. No edema, no erythema seen. LABORATORY DATA: WBC 8.2, hemoglobin 13.8, hematocrit 42.1, platelets 272. Sodium 136, potassium 4, chloride 105, bicarb 29, BUN 14, creatinine 0.9, serum glucose 120, calcium 9.4, total bilirubin 0.5, AST 21, ALT 45, alkaline phosphatase 87. C-reactive protein 0.3, lipase 91. Urinalysis negative. SARS-CoV-2 PCR negative. IMAGING DATA: Lumbar spine MRI without and with contrast, status post discectomy with overall improvement of the left neuroforaminal stenosis surrounding soft tissue edema at the surgical site, which may potentially result in transient impingement on L3-L4 spinal fluid. No evidence of infectious abnormality. ASSESSMENT AND PLAN: 1. Recurrent disk herniation. Plan for surgery tomorrow. The patient should be at acceptable for risk to proceed with surgery. Further management as per Orthopedics. 2. Hyperlipidemia: Continue statin. 3. Hypothyroidism. Continue Synthroid. 4. Deep venous thrombosis prophylaxis. DISPOSITION: As per Orthopedics. Job ID: [id number] [facility]
[2021-02-15] MEDS: oxyCODONE HCL IR 5 MG TAB (IMMEDIATE RELEASE) PO PRN (23:44)
[2021-02-15] MEDS: LORazepam 0.5 MG TAB PO PRN (23:47)
[2021-02-16] MEDS: LEVOTHYROXINE SODIUM 75 MCG TABLET PO SCH (04:36)
[2021-02-16] MEDS: HYDROmorphone INJ 1 MG/ML SYRINGE IV PRN ×6 (05:56→15:10)
[2021-02-16] MEDS ORDERED: ceFAZolin 2000MG 2,000 MG/15 ML SYR IV SCH (06:00)
[2021-02-16] MEDS: LACTATED RINGER'S 1,000 ML IV SCH ×4 (06:16→22:59)
[2021-02-16] MEDS: GABAPENTIN 300 MG CAP PO SCH ×2 (10:35→20:21)
[2021-02-16] MEDS: MULTIVITAMIN TAB PO SCH (10:36)
--- NOTE | 2021-02-16 11:46 | Hospitalist Progress Note ---
Date of Service February 16, 2021 Assessment & Plan (1) Back pain: (2) Lumbar disc herniation with radiculopathy: (3) Hyperlipidemia: (4) Hypothyroidism: Plan: This is a 60 who has a significant PMH of HLD, hypothyroidism, hx of raynauds who presented to ED 05/20 05/20 to low back pain. MRI L Spine: Lumbar spine MRI without and with contrast, status post discectomy with overall improvement of the left neuroforaminal stenosis surrounding soft tissue edema at the surgical site, which may potentially result in transient impingement on L3-L4 spinal fluid. No evidence of infectious abnormality. Pt admitted to med/surg Orthopedic Spine on board, plan for OR today pain/wound management per ortho encourage incentive spirometry monitor H&H post op HLD continue statin Hypothyroidism continue synthyroid DVT ppx: Dispo: per orho PCP: Layla Duran FULL CODE Pt was seen and examined in collaboration with Dr. Dimas, please see addendum Admission and Anticipated Discharge Date Admission Date: February 15, 2021 Supervising Physician Co-Signing Physician Notes Pt seen and examined by me, care coordinated with Vicky Asencio PA-C, pls refer to her note above for further detail. Pt is currently post-op and tolerated procedure well. She is eating and reports improvement in her symptoms. Her legs already feel better. She is alert, oriented, answering questions appropriately. Lungs are clear to auscultation b/l. Heart sounds regular. Abdomen soft, nontender, nondistended. Reports she was able to walk to the bathroom and has no difficulty voiding. Cont. to monitor hemodynamic status, H&H. Brianna Dimas MD Subjective Patient was seen and examined in room 385-1. Follow-up low back pain. Patient was resting in bed. She was awoken easily and continues to complain of left-sided low back pain that radiates down anterior thigh into foot. She also complains of tingling. She denies any difficulty moving bowels or passing urine or incontinence. She denies fever, chills, sweats, lightheadedness, dizziness, chest pain, shortness of breath, nausea, vomiting, abdominal pain. She further complains of weakness to the left lower extremity. She admits to being able to ambulate 1 flight of steps without getting chest pain or shortness of breath, but would experience leg weakness. She denies any history of CAD. Review of Systems Review of Systems: All systems reviewed & are unremarkable except as noted in HPI & below Physical Exam Physical Exam: Gen: WD/WN, NAD, A&O x3 HEENT: Normocephalic, atraumatic, conjunctivae moist, sclerae anicteric, mucous membranes moist. Lung: Clear to Auscultation bilaterally, no wheezes/rales/rhonchi Heart: Regular rate, regular rhythm, no murmurs, rubs, or gallops Abdomen: Soft, NT, ND +BS x 4 Extremities: No edema Skin: Warm, no rash, negative turgor. Results & Data Results & Data ([facility]) Vital Signs (Past 12 Hours) Vital Signs Temp Pulse Resp BP Pulse Ox 02/16/21 08:00 36.9 C 88 18 130/73 98 Medications Administered Current Inpatient Medications Acetaminophen (Acetaminophen 500 Mg Tab) 1,000 mg PO Q8H PRN PRN Reason: MILD Pain Scale 1,2,3 & Pre PT Stop: 03/17/21 18:50 Al Hydrox/Mg Hydrox/Simethicone (Aluminum/Magnesium Susp 30 Ml Udc) 30 ml PO Q6H PRN PRN Reason: Dyspepsia Stop: 03/17/21 18:50 Bisacodyl (Bisacodyl 10 Mg Supp) 10 mg MA DAILY PRN PRN Reason: Constipation Stop: 03/19/21 15:51 Diphenhydramine HCl (Diphenhydramine Capsule 25 Mg Cap) 25 mg PO Q6H PRN PRN Reason: Allergic Rhinitis/Insomnia Stop: 03/17/21 18:50 Gabapentin (Gabapentin 300 Mg Cap) 300 mg PO BID MIGUEL Stop: 03/17/21 20:59 Last Admin: 02/16/21 10:35 Dose: Not Given Documented by: Hydromorphone HCl (Hydromorphone Inj 0.5 Mg/0.5 Ml Syr) 0.5 mg IV Q3H PRN PRN Reason: MOD pain (scale 4-6) & Pre PT Stop: 03/01/21 18:50 Hydromorphone HCl (Hydromorphone Inj 1 Mg/Ml Syringe) 1 mg IV Q3H PRN PRN Reason: severe pain (scale 7-10) Stop: 03/01/21 18:50 Last Admin: 02/16/21 10:12 Dose: 1 mg Documented by: Hydroxyzine HCl (Hydroxyzine Hcl 25 Mg Tab) 25 mg PO Q8H PRN PRN Reason: Anxiety Stop: 03/17/21 18:50 Cefazolin Sodium (Ancef 2000mg) 2,000 mg in 15 mls @ 3.75 mls/min IV PREOP MIGUEL; Protocol Stop: 02/17/21 05:59 Lactated Ringer's (Lr) 1,000 mls @ 100 mls/hr IV .Q10H MIGUEL Stop: 03/17/21 18:50 Last Admin: 02/16/21 06:16 Dose: 100 mls/hr Documented by: Promethazine HCl 12.5 mg/ (Sodium Chloride) 50.5 mls @ 202 mls/hr IV Q6H PRN PRN Reason: Nausea &/or Vomiting Stop: 03/17/21 18:50 Acetaminophen (Ofirmev) 1,000 mg in 100 mls @ 400 mls/hr IV Q8H PRN PRN Reason: Pain Rating 1-3 & Pre PT Stop: 02/18/21 18:50 Lorazepam (Ativan) 0.5 mg in 1 mls @ 1 mls/min IV Q8H PRN PRN Reason: Sedation/Anxiety Stop: 03/17/21 18:50 Levothyroxine Sodium (Levothyroxine Sodium 75 Mcg Tablet) [facility] Stop: 03/18/21 06:29 Last Admin: 02/16/21 04:36 Dose: Not Given Documented by: Lorazepam (Lorazepam 0.5 Mg Tab) 0.5 mg PO Q8H PRN PRN Reason: sedation/anxiety Stop: 03/17/21 18:50 Last Admin: 02/15/21 23:47 Dose: 0.5 mg Documented by: Magnesium Hydroxide (Magnesium Hydroxide Susp 30 Ml Udc) 30 ml PO Q24H PRN PRN Reason: Constipation Stop: 03/17/21 18:50 Metoclopramide HCl (Metoclopramide Hcl Inj 5 Mg/Ml 2 Ml Vial) 10 mg IV Q6H PRN PRN Reason: Nausea &/or Vomiting Stop: 03/17/21 18:50 Multivitamins (Multivitamin Tab) 1 tab PO QAM [facility] Stop: 03/18/21 08:59 Last Admin: 02/16/21 10:36 Dose: Not Given Documented by: Naloxone HCl (Naloxone Hcl 0.4 Mg/1 Ml Vial/Carp) 0.1 mg IV Q5M PRN PRN Reason: Oversedation/respiratory dep Stop: 03/17/21 18:50 Ondansetron HCl (Ondansetron Inj 2 Mg/Ml 2 Ml Vial) 4 mg IV Q6H PRN PRN Reason: Nausea &/or Vomiting Stop: 03/17/21 18:50 Last Admin: 02/16/21 10:14 Dose: 4 mg Documented by: Ondansetron HCl (Ondansetron 4 Mg Od Tab) 4 mg PO Q6H PRN PRN Reason: Nausea Stop: 03/17/21 18:50 Oxycodone HCl (Oxycodone Hcl Ir 5 Mg Tab (Immediate Release)) 5 - 10 mg PO Q4H PRN PRN Reason: mod to severe pain Stop: 03/01/21 18:50 Last Admin: 02/15/21 23:44 Dose: 10 mg Documented by: Rizatriptan Benzoate (Rizatriptan Benzoate Information Systems Director 10 Mg Tab) 10 mg PO Q2H PRN PRN Reason: migraines Stop: 03/17/21 19:44 Rosuvastatin Calcium (Rosuvastatin Calcium 5 Mg Tab) 5 mg PO HS MIGUEL Stop: 03/17/21 20:59 Last Admin: 02/15/21 20:57 Dose: 5 mg Documented by: Senna/Docusate Sodium (Docusate Sodium/Senna 50/8.6mg Tab) 2 tab PO HS MIGUEL Stop: 03/17/21 20:59 Last Admin: 02/15/21 20:57 Dose: 2 tab Documented by: Tramadol HCl (Tramadol Hcl 50 Mg Tablet) 50 - 100 mg PO Q4H PRN PRN Reason: Moderate-Severe pain & Pre PT Stop: 03/17/21 18:50 COVID-19 Results Results COVID-19 Adm Lab Results: RBC 4.94 M/uL (4.2-5.4) 02/15/21 WBC 8.29 K/uL (4.8-10.8) 02/15/21 Hgb 13.8 g/dL (12.0-16.0) 02/15/21 Hct 42.1 % (37-47) 02/15/21 Plt Count 272 K/uL (130-400) 02/15/21 Neutrophils (%) (Auto) 61.0 % 02/15/21 Lymphocytes (%) (Auto) 28.5 % 02/15/21 Monocytes # (Auto) 0.62 K/uL (0.11-0.59) H 02/15/21 Eosinophils # (Auto) 0.16 K/uL (0-0.5) 02/15/21 Immature Granulocyte % (Auto) 0.7 % 02/15/21 Neutrophils # (Auto) 5.06 K/uL (1.4-6.5) 02/15/21 Lymphocytes # (Auto) 2.36 K/uL (1.2-3.4) 02/15/21 Monocytes # (Auto) 0.62 K/uL (0.11-0.59) H 02/15/21 Eosinophils # (Auto) 0.16 K/uL (0-0.5) 02/15/21 Basophils # (Auto) 0.03 K/uL (0-0.2) 02/15/21 Immature Granulocyte # (Auto) 0.06 K/uL (0.00-0.02) H 02/15/21 Na 136 mmol/L (136-145) 02/15/21 K 4.0 mmol/L (3.5-5.1) 02/15/21 Cl 105 mmol/L (98-107) 02/15/21 CO2 29 mmol/L (21-32) 02/15/21 Anion Gap 2.0 (3-11) L 02/15/21 BUN 14 mg/dl (7-18) 02/15/21 Creatinine 0.90 mg/dl (0.6-1.2) 02/15/21 BUN/Creatinine Ratio 15.6 (10-20) 02/15/21 Glucose Level 120 mg/dl (70-99) H 02/15/21 Ca 9.4 mg/dl (8.5-10.1) 02/15/21 Total Bilirubin 0.5 mg/dl (0.2-1) 02/15/21 AST/SGOT 21 U/L (15-37) 02/15/21 ALT/SGPT 45 U/L (12-78) 02/15/21 Alkaline Phosphatase 87 U/L (45-117) 02/15/21 Total Protein 7.8 gm/dl (6.4-8.2) 02/15/21 Albumin 4.1 gm/dl (3.4-5.0) 02/15/21 Globulin 3.7 gm/dl (2.5-4.0) 02/15/21 Albumin/Globulin Ratio 1.1 (0.9-2) 02/15/21 CRP 0.37 mg/dl (0-0.29) H 02/15/21 COVID-19 PCR NEGATIVE (Negative) 02/15/21 (1) Back pain Back pain laterality: left Back pain location: low back pain Chronicity: acute Sciatica laterality: sciatica of left side Sciatica presence: with sciatica Qualified Code(s): M54.42 - Lumbago with sciatica, left side
--- NOTE | 2021-02-16 12:01 | History & Physical Bridge Note ---
Date of Service February 16, 2021 History & Physical Bridge Note I have examined the patient, reviewed the History & Physical and in the interval since the performance of the History & Physical I have noted the following changes of clinical significance: Patient continues to demonstrate marked decline in neurologic function affecting the left quadricep. As it is progressive in nature I am recommending emergent decompression.
[2021-02-16] MEDS ORDERED: BUPIVACAINE 0.5 % 5 MG/1 ML MPF 30ML VIAL ONE (12:16)
[2021-02-16] MEDS ORDERED: EPINEPHrine INJ 1 MG/ML AMP ONE (12:16)
[2021-02-16] MEDS ORDERED: PROPOFOL IV EMULSION 10 MG/ML 20 ML VIAL IV ONE (12:20)
[2021-02-16] MEDS ORDERED: fentaNYL citrate 100 MCG/2 ML VIAL ONE (12:20)
[2021-02-16] MEDS ORDERED: MIDAZOLAM HCL 1 MG/ML 2ML VIAL ONE (12:20)
[2021-02-16] MEDS ORDERED: ATROPINE SULFATE 0.1 MG/ML 10ML SYR IV PRN (12:23)
[2021-02-16] MEDS ORDERED: ONDANSETRON INJ 2 MG/ML 2 ML VIAL IV PRN ×2 (12:23→15:50)
[2021-02-16] MEDS ORDERED: FLOSEAL HEMOSTATIC MATRIX 10ML TOP ONE (13:30)
[2021-02-16] MEDS ORDERED: DEXAMETHASONE SOD INJ 4 MG/ML VIAL ONE ×2 (13:48→13:49)
[2021-02-16] MEDS ORDERED: ONDANSETRON INJ 2 MG/ML 2 ML VIAL ONE (13:48)
[2021-02-16] MEDS ORDERED: PHENYLEPHRINE 100MCG/ML 5ML SYR ONE (13:49)
[2021-02-16] MEDS ORDERED: NEOSTIGMINE METHYLSULFATE 1 MG/ML 10ML VIAL ONE (13:49)
[2021-02-16] MEDS ORDERED: GLYCOPYRROLATE 0.2 MG/ML VIAL ONE (13:49)
[2021-02-16] MEDS ORDERED: ROCURONIUM BROMIDE 10 MG/ML 5 ML VIAL IV ONE (13:50)
--- NOTE | 2021-02-16 14:08 | Operative Report ---
Post Operative Report Pre & Post Diagnosis Operation Date: 02/16/21 09:40 Pre-Op Diagnosis: Lumbar disc herniation with radiculopathy Post-Op Diagnosis: Lumbar disc herniation with radiculopathy I identified the patient and participated in the time-out.: Yes Procedure Operation Date: 02/16/21 09:40 Actual Procedures #1 lumbar decompression with bilateral medial facetectomies and foraminotomies L3-L4. #2 posterior spinal fusion L3-L4. #3 placed posterior instrumentation L3-4. #4 interbody fusion L3-L4. #5 placement peek cage 12 x 22 mm at L3-L4. #6 placement locally harvested morselized autograft in the posterior gutters. #7 placement of I factor combined with V toss in the interbody space and posterior lateral gutters. Surgeon Ricardo Gasca, Clinical Laboratory Science Professor Shilpa Menjivar Estimated Blood Loss 250 Findings Consistent with Post-Op Diagnosis Recurrent disc condition L3-L4 on the left Specimens None Indications This is a 60-year-old female who presents proximally 1 week status post bilateral vasectomy. She notes severe pain beginning 2 to 3 days postop with decline in function to the left quadricep. Secondary to her severe pain and progressive strength deficit she presented to the emergency room was admitted and having further strength deficits underwent emergent decompression. Description of Procedure Patient was met with identified informed consent obtained. Patient was then taken to the operative suite underwent a patient placed in a prone position on a Duane table top Alfred frame. All bony prominences well-padded eyes inspected to ensure no external pressure placed upon the. This point lumbar spine was prepped and draped in a sterile fashion. Sharp dissection with the assistance of Bovie cautery was performed down to and exposing the lamina and transverse processes of L3 and L4. Self-retaining retractors placed. Then performed a complete laminectomy of L3 but with bilateral medial facetectomies and on the left a complete facetectomy to explore the exiting L3 nerve root. Several fragments of loose disc material were noted directly under the root both in the foramen and extraforaminal region. The removed in their entirety. Pedicle screws then placed in L3 and L4 bilaterally with assistance of fluoroscopy and the properly sized reece placed. By way of a transforaminal approach on the left complete discectomy was performed endplates curetted to subcortical bleeding bone and a 12 x 22 mm peek cage filled with I factor tapped in position. The rods were then compressed locked into final position bilaterally. The transverse processes of L3 and L4 burred to subcortical being bone. I factor combined with V toss and locally harvested morselized autograft was placed in the posterior lateral gutters. 15 round MARVIN drain inserted. The incision was then closed with 1 Vicryl in the fascia 2-0 Vicryl subcutaneously and 4 Monocryl for final skin closure. Steri-Strip sterile dressings placed. Patient waken taken to PACU stable condition. Please note spinal cord monitoring was utilized at the procedure no changes noted. Lastly Shilpa Menjivar was present at the entire surgery involved the patient positioning complex portions of the surgery and final skin closure. I attest to the content of the Intraoperative Record and any orders documented therein. Any exceptions are noted below.
--- NOTE | 2021-02-16 14:36 | Fluoroscopy Report ---
FL lumbar spine 2-3V CLINICAL HISTORY: L3-4 DECOMPRESSION/FUSION COMPARISON STUDY: Lumbar spine MRI 02/15/2021. FLUOROSCOPY TIME: 15 second. FINDINGS: 2 fluoroscopic spot images of the lumbar spine demonstrate L3-L4 posterior decompression fu jihan with pedicle screws and rods. The hardware is intact. IMPRESSION: Fluoroscopy for for L3-L4 posterior decompression and fusion. ACT 112: Negative or not required by law. Electronically signed by: Diogenes Ortega M.D. 02/16/2021 2:35 PM
--- NOTE | 2021-02-16 15:10 | Anesthesiology Progress Note ---
Date of Service February 16, 2021 Anesthesia Post Procedure Vital Signs Vital Signs: Temp Pulse Pulse Resp BP Pulse Ox 02/16/21 14:55 79 16 127/57 L 99 02/16/21 14:45 81 17 140/54 L 99 02/16/21 14:35 99 H 19 131/82 99 02/16/21 14:26 36.0 C L 105 H 20 142/104 H 100 02/16/21 12:15 37.2 C 94 H 20 125/73 99 02/16/21 11:49 37.2 C 93 H 18 126/75 96 02/16/21 08:00 36.9 C 88 18 130/73 98 02/15/21 22:56 36.8 C 83 16 127/79 99 02/15/21 17:58 79 14 114/72 97 02/15/21 16:12 85 15 127/76 98 Pain Intensity Left Lower Back: Pain Intensity: 10 Medial Back: Pain Intensity: 6 Transfer of Care Handoff Completed per policy Notes Mental Status: alert / awake / arousable Patient Amnestic to Procedure: Yes Nausea / Vomiting: adequately controlled Pain: adequately controlled Airway Patency, RR, SpO2: stable & adequate BP & HR: stable & adequate Hydration State: stable & adequate Anesthetic Complications: no major complications apparent
[2021-02-16] MEDS ORDERED: ACETAMINOPHEN 1,000 MG/100 ML VIAL IV PRN (15:50)
[2021-02-16] MEDS ORDERED: FAMOTIDINE 20 MG TAB PO PRN (15:50)
[2021-02-16] MEDS ORDERED: ONDANSETRON 4 MG OD TAB PO PRN (15:50)
[2021-02-16] MEDS ORDERED: MAGNESIUM HYDROXIDE SUSP 30 ML UDC PO PRN (15:50)
[2021-02-16] MEDS ORDERED: DO NOT ADMINISTER FLU VACCINE PRN (15:50)
[2021-02-16] MEDS ORDERED: ACETAMINOPHEN 500 MG TAB PO PRN (15:50)
[2021-02-16] MEDS ORDERED: LORazepam 0.5 MG/1 ML VIAL IV PRN (15:50)
[2021-02-16] MEDS ORDERED: METOCLOPRAMIDE HCL INJ 5 MG/ML 2 ML VIAL IV PRN (15:50)
[2021-02-16] MEDS ORDERED: ALUMINUM/MAGNESIUM SUSP 30 ML UDC PO PRN (15:50)
[2021-02-16] MEDS ORDERED: PROMETHAZINE HCL 12.5 MG in SODIUM CHLORIDE 0.9% 50 ML IV PRN (15:50)
[2021-02-16] MEDS ORDERED: diphenhydrAMINE Capsule 25 MG CAP PO PRN (15:50)
[2021-02-16] MEDS ORDERED: DO NOT ADMINISTER PNEUMOCOCCAL VACCINE PRN (15:50)
[2021-02-16] MEDS ORDERED: SOD PHOSPHATE/SOD BIPHOSPHATE ENEMA 132 ML BTL PR PRN (15:50)
[2021-02-16] MEDS ORDERED: HYDROmorphone INJ 1 MG/ML SYRINGE IV PRN (15:50)
[2021-02-16] MEDS ORDERED: bisacodyL 10 MG SUPP PR PRN (15:50)
[2021-02-16] MEDS ORDERED: LORazepam 0.5 MG TAB PO PRN (15:50)
[2021-02-16] MEDS ORDERED: HYDROmorphone INJ 0.5 MG/0.5 ML SYR IV PRN (15:50)
[2021-02-16] MEDS ORDERED: NALOXONE HCL 0.4 MG/1 ML VIAL/CARP IV PRN (15:50)
[2021-02-16] MEDS ORDERED: hydrOXYzine HCl 25 MG TAB PO PRN (15:50)
[2021-02-16] MEDS: traMADol HCL 50 MG TABLET PO PRN ×2 (16:46→20:30)
[2021-02-16] MEDS: DOCUSATE SODIUM/SENNA 50/8.6MG TAB PO SCH ×2 (20:20)
[2021-02-16] MEDS: ceFAZolin 1000MG 1,000 MG/7.5 ML SYR IV SCH (20:20)
[2021-02-16] MEDS: ROSUVASTATIN CALCIUM 5 MG TAB PO SCH (21:23)
[2021-02-17] MEDS: POLYETHYLENE (MIRALAX) 17 GM PACK PO SCH ×3 (05:39→18:06)
[2021-02-17] MEDS: traMADol HCL 50 MG TABLET PO PRN ×3 (05:39→22:22)
[2021-02-17] MEDS: ceFAZolin 1000MG 1,000 MG/7.5 ML SYR IV SCH (05:40)
[2021-02-17] MEDS: LEVOTHYROXINE SODIUM 75 MCG TABLET PO SCH (05:59)
[2021-02-17 06:29] LABS: Basophils # (auto) 0.02 K/uL (0-0.2); Basophils % (auto) 0.1 %; Eosinophils # (auto) 0.01 K/uL (0-0.5); Eosinophils % (auto) 0.1 %; Hematocrit (blood only) 35.3 % (37-47); Hemoglobin 11.6 g/dL (12.0-16.0); Immature Granulocytes # (auto) 0.07 K/uL (0.00-0.02); Immature Granulocytes % (auto) 0.4 %; Lymphocytes # (auto) 1.82 K/uL (1.2-3.4); Lymphocytes % (auto) 11.1 %; Mean Corpuscular Hgb Conc 32.9 g/dL (32-36); Mean Corpuscular Volume 85.1 fL (80-100); Mean Platelet Volume 9.5 fL (7.4-10.4); Monocytes # (auto) 1.48 K/uL (0.11-0.59); Neutrophils # (auto) 13.05 K/uL (1.4-6.5); Neutrophils % (auto) 79.3 %; Platelet Count 270 K/uL (130-400); RDW Coefficient of Variation 12.8 % (11.5-14.5); RDW Standard Deviation 39.6 fL (36.4-46.3); Red Blood Count 4.15 M/uL (4.2-5.4); White Blood Count 16.45 K/uL (4.8-10.8)
[2021-02-17 07:10] LABS: BUN Creatinine Ratio 12.6 (10-20); Calcium 9.3 mg/dl (8.5-10.1); Creatinine Clr Calc Pharmacy 55.7 ml/min; Est GFR (African American) 69.6 ml/min; Potassium 3.7 mmol/L (3.5-5.1)
[2021-02-17] MEDS: LACTATED RINGER'S 1,000 ML IV SCH ×2 (07:21→10:21)
[2021-02-17] MEDS: dexAMETHasone 8 MG in SYRINGE 0 ML IV SCH (09:18)
[2021-02-17] MEDS: MULTIVITAMIN TAB PO SCH (09:18)
[2021-02-17] MEDS: GABAPENTIN 300 MG CAP PO SCH ×2 (10:21→20:19)
--- NOTE | 2021-02-17 12:29 | Hospitalist Progress Note ---
Date of Service February 17, 2021 Assessment & Plan (1) Back pain: (2) Lumbar disc herniation with radiculopathy: (3) Hyperlipidemia: (4) Hypothyroidism: Plan: This is a 60 who has a significant PMH of HLD, hypothyroidism, hx of raynauds who presented to ED 2/ 2 to low back pain. MRI L Spine: Lumbar spine MRI without and with contrast, status post discectomy with overall improvement of the left neuroforaminal stenosis surrounding soft tissue edema at the surgical site, which may potentially result in transient impingement on L3-L4 spinal fluid. No evidence of infectious abnormality. Pt admitted to med/surg s/p L3-L4 decompression/fusion, POD #[address] Gasca pain/wound management per ortho encourage incentive spirometry monitor H&H post op receiving IV decadron Post operative anemia hgb 11.6, preo op 13.8 ebl 250ml; yvan drain 150ml expected blood loss anemia Leukocytosis wbc 16k, likely reactive no s/sx of infection Elevated fasting glucose likely in setting of steroid use obtain a1c in a.m. HLD continue statin Hypothyroidism continue synthyroid DVT ppx: Dispo: per orho PCP: Layla Duran FULL CODE Pt was seen and examined in collaboration with Dr. Dimas, please see addendum Thank you for this consultation. We will follow the patient with you during their hospital stay. You can reach a member of the [facility] Hospitalist Team 08/11 via hospitalist role on tiger text. Admission and Anticipated Discharge Date Admission Date: February 15, 2021 Supervising Physician Co-Signing Physician Notes Pt seen and examined by me, care coordinated with Vicky Asencio PA-C, pls refer to her note above for further detail. Pt is doing well. She is eating and reports significant improvement in her symptoms. Her LLE already feels much better, denies pain. She is alert, oriented, answering questions appropriately. Lungs are clear to auscultation b/l. Heart sounds regular. Abdomen soft, nontender, nondistended. She is walking to the bathroom and has no difficulty voiding. Hgb slightly down which is expected. Cont. to monitor hemodynamic status, Marisol&H. Brianna Dimas MD Subjective Patient was seen and examined in room 385-1. Follow-up low back pain s/p lumbar procedure POD #1. She is doing well this morning. Has already ambulated in the hazel and into bathroom. She is complaining of incisional discomfort, but leg pain is gone. She denies f/c/s, chest pain, sob,n/v/d, abd pain. She is tolerating diet. She is making flatus but no BM yet. Review of Systems Review of Systems: All systems reviewed & are unremarkable except as noted in HPI & below Physical Exam Physical Exam: Gen: WD/WN, NAD, A&O x3 HEENT: Normocephalic, atraumatic, conjunctivae moist, sclerae anicteric, mucous membranes moist. Lung: Clear to Auscultation bilaterally, no wheezes/rales/rhonchi Heart: Regular rate, regular rhythm, no murmurs, rubs, or gallops Abdomen: Soft, NT, ND +BS x 4 Extremities: No edema, dressing CDI, YVAN drain with sersosang drainage Skin: Warm, no rash, negative turgor. Results & Data Results & Data ([facility]) Vital Signs (Past 12 Hours) Vital Signs Temp Pulse Resp BP Pulse Ox 02/17/21 11:17 36.7 C 81 16 114/71 98 02/17/21 07:19 37.2 C 85 16 109/61 97 02/17/21 02:58 36.9 C 85 16 115/64 97 Diagnostic Findings Short CBC 02/17/21 Range/Units 06:15 WBC 16.45 H (4.8-10.8) K/uL Hgb 11.6 L (12.0-16.0) g/dL Hct 35.3 L (37-47) % Plt Count 270 (130-400) K/uL BMP 02/17/21 06:15 Sodium 138 Potassium 3.7 Chloride 105 Carbon Dioxide 26 BUN 13 Creatinine 1.01 Glucose 151 H Calcium 9.3 Medications Administered Current Inpatient Medications Acetaminophen (Acetaminophen 500 Mg Tab) 1,000 mg PO Q8H PRN PRN Reason: MILD Pain Scale 1,2,3 & Pre PT Stop: 03/17/21 18:50 Acetaminophen (Acetaminophen 500 Mg Tab) 1,000 mg PO Q8H PRN PRN Reason: MILD Pain Scale 1,2,3 & Pre PT Stop: 03/18/21 15:49 Al Hydrox/Mg Hydrox/Simethicone (Aluminum/Magnesium Susp 30 Ml Udc) 30 ml PO Q6H PRN PRN Reason: Dyspepsia Stop: 03/17/21 18:50 Al Hydrox/Mg Hydrox/Simethicone (Aluminum/Magnesium Susp 30 Ml Udc) 30 ml PO Q6H PRN PRN Reason: Dyspepsia Stop: 03/18/21 15:49 Bisacodyl (Bisacodyl 10 Mg Supp) 10 mg MO DAILY PRN PRN Reason: Constipation Stop: 03/19/21 15:51 Bisacodyl (Bisacodyl 10 Mg Supp) 10 mg MO DAILY PRN PRN Reason: Constipation Stop: 03/18/21 15:49 Diphenhydramine HCl (Diphenhydramine Capsule 25 Mg Cap) 25 mg PO Q6H PRN PRN Reason: Allergic Rhinitis/Insomnia Stop: 03/17/21 18:50 Diphenhydramine HCl (Diphenhydramine Capsule 25 Mg Cap) 25 mg PO Q6H PRN PRN Reason: Allergic Rhinitis/Insomnia Stop: 03/18/21 15:49 Famotidine (Famotidine 20 Mg Tab) 20 mg PO Q12H PRN PRN Reason: Dyspepsia Stop: 03/18/21 15:49 Gabapentin (Gabapentin 300 Mg Cap) 300 mg PO BID MIGUEL Stop: 03/17/21 20:59 Last Admin: 02/17/21 10:21 Dose: 300 mg Documented by: Hydromorphone HCl (Hydromorphone Inj 0.5 Mg/0.5 Ml Syr) 0.5 mg IV Q3H PRN PRN Reason: MOD pain (scale 4-6) & Pre PT Stop: 03/01/21 18:50 Hydromorphone HCl (Hydromorphone Inj 1 Mg/Ml Syringe) 1 mg IV Q3H PRN PRN Reason: severe pain (scale 7-10) Stop: 03/01/21 18:50 Last Admin: 02/16/21 10:12 Dose: 1 mg Documented by: Hydromorphone HCl (Hydromorphone Inj 0.5 Mg/0.5 Ml Syr) 0.5 mg IV Q3H PRN PRN Reason: MODERATE Pain (Scale 4,5,6) & Pre PT Stop: 03/02/21 15:49 Hydromorphone HCl (Hydromorphone Inj 1 Mg/Ml Syringe) 1 mg IV Q3H PRN PRN Reason: SEVERE Pain (Scale 7,8,9,10) Stop: 03/02/21 15:49 Hydroxyzine HCl (Hydroxyzine Hcl 25 Mg Tab) 25 mg PO Q8H PRN PRN Reason: Anxiety Stop: 03/17/21 18:50 Hydroxyzine HCl (Hydroxyzine Hcl 25 Mg Tab) 25 mg PO Q8H PRN PRN Reason: Anxiety Stop: 03/18/21 15:49 Promethazine HCl 12.5 mg/ (Sodium Chloride) 50.5 mls @ 202 mls/hr IV Q6H PRN PRN Reason: Nausea &/or Vomiting Stop: 03/17/21 18:50 Acetaminophen (Ofirmev) 1,000 mg in 100 mls @ 400 mls/hr IV Q8H PRN PRN Reason: Pain Rating 1-3 & Pre PT Stop: 02/18/21 18:50 Lorazepam (Ativan) 0.5 mg in 1 mls @ 1 mls/min IV Q8H PRN PRN Reason: Sedation/Anxiety Stop: 03/17/21 18:50 Acetaminophen (Ofirmev) 1,000 mg in 100 mls @ 400 mls/hr IV Q8H PRN PRN Reason: Pain Rating 1-3 & Pre PT Stop: 02/19/21 15:49 Lorazepam (Ativan) 0.5 mg in 1 mls @ 1 mls/min IV Q8H PRN PRN Reason: Sedation/Anxiety Stop: 03/18/21 15:49 Dexamethasone 8 mg/ Syringe 2 mls @ 1 mls/min IV DAILY MIGUEL Stop: 02/19/21 09:01 Last Admin: 02/17/21 09:18 Dose: 1 mls/min Documented by: Promethazine HCl 12.5 mg/ (Sodium Chloride) 50.5 mls @ 202 mls/hr IV Q6H PRN PRN Reason: Nausea &/or Vomiting Stop: 03/18/21 15:49 Influenza Virus Vaccine Quadrival (Do Not Administer Flu Vaccine) 1 ea N/A PRN PRN PRN Reason: Notification Stop: 03/18/21 15:49 Levothyroxine Sodium (Levothyroxine Sodium 75 Mcg Tablet) 75 mcg PO DAILYBB MIGUEL Stop: 03/18/21 06:29 Last Admin: 02/17/21 05:59 Dose: 75 mcg Documented by: Lorazepam (Lorazepam 0.5 Mg Tab) 0.5 mg PO Q8H PRN PRN Reason: sedation/anxiety Stop: 03/17/21 18:50 Last Admin: 02/15/21 23:47 Dose: 0.5 mg Documented by: Lorazepam (Lorazepam 0.5 Mg Tab) 0.5 mg PO Q8H PRN PRN Reason: Sedation/Anxiety Stop: 03/18/21 15:49 Magnesium Hydroxide (Magnesium Hydroxide Susp 30 Ml Udc) 30 ml PO Q24H PRN PRN Reason: Constipation Stop: 03/17/21 18:50 Magnesium Hydroxide (Magnesium Hydroxide Susp 30 Ml Udc) 30 ml PO Q24H PRN PRN Reason: Constipation Stop: 03/18/21 15:49 Metoclopramide HCl (Metoclopramide Hcl Inj 5 Mg/Ml 2 Ml Vial) 10 mg IV Q6H PRN PRN Reason: Nausea &/or Vomiting Stop: 03/17/21 18:50 Metoclopramide HCl (Metoclopramide Hcl Inj 5 Mg/Ml 2 Ml Vial) 10 mg IV Q6H PRN PRN Reason: Nausea &/or Vomiting Stop: 03/18/21 15:49 Multivitamins (Multivitamin Tab) 1 tab PO QAM [facility] Stop: 03/18/21 08:59 Last Admin: 02/17/21 09:18 Dose: 1 tab Documented by: Naloxone HCl (Naloxone Hcl 0.4 Mg/1 Ml Vial/Carp) 0.1 mg IV Q5M PRN PRN Reason: Oversedation/respiratory dep Stop: 03/17/21 18:50 Naloxone HCl (Naloxone Hcl 0.4 Mg/1 Ml Vial/Carp) 0.1 mg IV Q5M PRN PRN Reason: Oversedation/Resp depression Stop: 03/18/21 15:49 Ondansetron HCl (Ondansetron Inj 2 Mg/Ml 2 Ml Vial) 4 mg IV Q6H PRN PRN Reason: Nausea &/or Vomiting Stop: 03/17/21 18:50 Last Admin: 02/16/21 10:14 Dose: 4 mg Documented by: Ondansetron HCl (Ondansetron 4 Mg Od Tab) 4 mg PO Q6H PRN PRN Reason: Nausea Stop: 03/17/21 18:50 Ondansetron HCl (Ondansetron Inj 2 Mg/Ml 2 Ml Vial) 4 mg IV Q6H PRN PRN Reason: Nausea &/or Vomiting Stop: 03/18/21 15:49 Ondansetron HCl (Ondansetron 4 Mg Od Tab) 4 mg PO Q6H PRN PRN Reason: Nausea Stop: 03/18/21 15:49 Oxycodone HCl (Oxycodone Hcl Ir 5 Mg Tab (Immediate Release)) 5 - 10 mg PO Q4H PRN PRN Reason: mod to severe pain Stop: 03/01/21 18:50 Last Admin: 02/15/21 23:44 Dose: 10 mg Documented by: Pneumococcal Polyvalent Vaccine (Do Not Administer Pneumococcal Vaccine) 1 ea N/A PRN PRN PRN Reason: Notification Stop: 03/18/21 15:49 Polyethylene Glycol (Polyethylene (Miralax) 17 Gm Pack) 17 gm PO Q6 MIGUEL Stop: 03/19/21 05:59 Last Admin: 02/17/21 12:57 Dose: 17 gm Documented by: Rizatriptan Benzoate (Rizatriptan Benzoate Business Case Analyst 10 Mg Tab) 10 mg PO Q2H PRN PRN Reason: migraines Stop: 03/17/21 19:44 Rosuvastatin Calcium (Rosuvastatin Calcium 5 Mg Tab) 5 mg PO HS MIGUEL Stop: 03/17/21 20:59 Last Admin: 02/16/21 21:23 Dose: 5 mg Documented by: Senna/Docusate Sodium (Docusate Sodium/Senna 50/8.6mg Tab) 2 tab PO HS MIGUEL Stop: 03/17/21 20:59 Last Admin: 02/16/21 20:20 Dose: 2 tab Documented by: Senna/Docusate Sodium (Docusate Sodium/Senna 50/8.6mg Tab) 2 tab PO HS MIGUEL Stop: 03/18/21 20:59 Last Admin: 02/16/21 20:20 Dose: Not Given Documented by: Sodium Biphosphate/Sodium Phosphate (Sod Phosphate/Sod Biphosphate Enema 132 Ml Btl) 132 ml MO ONE PRN PRN Reason: Constipation Stop: 03/18/21 15:49 Tramadol HCl (Tramadol Hcl 50 Mg Tablet) 50 - 100 mg PO Q4H PRN PRN Reason: Moderate-Severe pain & Pre PT Stop: 03/17/21 18:50 Last Admin: 02/17/21 12:57 Dose: 100 mg Documented by: (1) Back pain Back pain laterality: left Back pain location: low back pain Chronicity: acute Sciatica laterality: sciatica of left side Sciatica presence: with sciatica Qualified Code(s): M54.42 - Lumbago with sciatica, left side
--- NOTE | 2021-02-17 12:56 | Orthopedic Progress Note ---
Date of Service February 17, 2021 Assessment & Plan (1) Lumbar disc herniation with radiculopathy: Plan: This time we will continue physical therapy monitor MARVIN output anticipate possible discharge home tomorrow. Admission and Anticipated Discharge Date Admission Date: February 15, 2021 Subjective Patient's back pain is controlled leg pain markedly improved Physical Exam Physical Exam: Patient is ambulating the halls. She has good strength testing. Results & Data ([facility]) Vital Signs (Past 12 Hours) Vital Signs Temp Pulse Resp BP Pulse Ox 02/17/21 11:17 36.7 C 81 16 114/71 98 02/17/21 07:19 37.2 C 85 16 109/61 97 02/17/21 02:58 36.9 C 85 16 115/64 97
[2021-02-17] MEDS ORDERED: bisacodyL 10 MG SUPP PR PRN (15:52)
[2021-02-17] MEDS: ROSUVASTATIN CALCIUM 5 MG TAB PO SCH (20:19)
[2021-02-17] MEDS: DOCUSATE SODIUM/SENNA 50/8.6MG TAB PO SCH ×2 (20:19→20:29)
[2021-02-17] MEDS: oxyCODONE HCL IR 5 MG TAB (IMMEDIATE RELEASE) PO PRN (20:27)
[2021-02-17] MEDS: LORazepam 0.5 MG TAB PO PRN (20:27)
[2021-02-18] MEDS: POLYETHYLENE (MIRALAX) 17 GM PACK PO SCH ×2 (01:02→06:13)
[2021-02-18] MEDS: oxyCODONE HCL IR 5 MG TAB (IMMEDIATE RELEASE) PO PRN (03:05)
[2021-02-18] MEDS: LEVOTHYROXINE SODIUM 75 MCG TABLET PO SCH (06:13)
[2021-02-18] MEDS: dexAMETHasone 8 MG in SYRINGE 0 ML IV SCH (08:31)
[2021-02-18] MEDS: MULTIVITAMIN TAB PO SCH (08:32)
[2021-02-18] MEDS: GABAPENTIN 300 MG CAP PO SCH (08:32)
[2021-02-18 09:20] LABS: Basophils # (auto) 0.03 K/uL (0-0.2); Basophils % (auto) 0.2 %; Eosinophils # (auto) 0.06 K/uL (0-0.5); Eosinophils % (auto) 0.5 %; Hematocrit (blood only) 35.1 % (37-47); Hemoglobin 11.1 g/dL (12.0-16.0); Immature Granulocytes # (auto) 0.06 K/uL (0.00-0.02); Immature Granulocytes % (auto) 0.5 %; Lymphocytes # (auto) 2.87 K/uL (1.2-3.4); Lymphocytes % (auto) 23.1 %; Mean Corpuscular Hemoglobin 27.5 pg (25-34); Mean Corpuscular Hgb Conc 31.6 g/dL (32-36); Mean Corpuscular Volume 87.1 fL (80-100); Mean Platelet Volume 9.7 fL (7.4-10.4); Monocytes # (auto) 1.41 K/uL (0.11-0.59); Monocytes % (auto) 11.4 %; Neutrophils # (auto) 7.97 K/uL (1.4-6.5); Neutrophils % (auto) 64.3 %; Platelet Count 258 K/uL (130-400); RDW Standard Deviation 42.1 fL (36.4-46.3); Red Blood Count 4.03 M/uL (4.2-5.4)
--- NOTE | 2021-02-18 09:31 | Discharge Summary ---
Date of Service February 18, 2021 Admission HPI Per Admitting Provider This this is a 60-year-old female status post far lateral discectomy L3-L4 on the left approximate week ago. Postoperatively she was doing well for approximately 3 days but then had the sudden onset of severe pain with now developing weakness into the left quadricep. She is unable to ambulate and ascend or descend stairs secondary to weakness. The pain is incapacitating nature. She is been taking Neurontin oxycodone and tramadol without any improvement in pain or function. The right lower extremity asymptomatic. Principal Diagnosis Recurrent lumbar disc herniation Discharge Data Allergies Allergy/AdvReac Type Severity Reaction Status Date / Time Sulfa (Sulfonamide Allergy Intermediate rash Verified 02/09/21 07:03 Antibiotics) Consultations 02/15/21 18:51 Consult Anesthesiology Routine Consult Internal Medicine Routine Procedures Performed Operation Date: 02/16/21 09:40 Actual Procedures p L3-L4 Decompression and Fusion with Insertion of Interbody, Spinal Cord Monitoring(Not Applicable) - Ricardo Gasca DO Ordered Studies 02/15/21 11:46 MR lumbar spine wo/w con Stat 02/16/21 10:30 FL lumbar spine 2-3V Routine Hospital Course (1) Lumbar disc herniation with radiculopathy: Patient was admitted with severe recurrent back and leg pain underwent surgery next day tolerates well second orthopedic floor. Postop day 1 she was up ambulating leg pain markedly improved progressed to postop day #2. MARVIN drain decreasing appropriately. Excellent strength testing. Subsequent discharge home. Discharge orders and instructions found the chart for further review. Total Time Total Time Spent Total Time Spent (In Minutes): 20 minutes Discharge Plan Discharge Items Patient Disposition: Home - Self-Care Reason For Visit: RECURRENT LUMBAR DISK HERNIATION Discharge Diagnosis: Recurrent lumbar disc herniation Activity: As commented below Non-emergency contact: Primary Care Provider Call non-emergency contact if: you have any medication questions Follow-up/Referrals: Layla Duran MD [Primary Care Provider] - Diet: Regular Addtl Attending Provider Instructions: ACTIVITY RECOMMENDATIONS: SELF CARE INSTRUCTIONS AFTER THORACIC/LUMBAR FUSIONS 1. You may walk to your tolerance. It is good exercise for your legs and back. Expect some back and intermittent leg aches and pains. 2. You may perform "counter-top" level activities (make a sandwich, cecilia with a project, etc.). 3. No bending or lifting of more than 10 pounds or back twisting of any nature (roll like a log when turning in bed). 4. You may ride in a car for 20-30 minutes at a time. No driving until after your first visit with your doctor. 5. Frequent changes of position and restricting sitting to 30 minutes at a time will help limit the amount of back spasms and stiffness you may experience. 6. You may discontinue the use of ambulatory aids (cane, crutches, etc.) once your strength and confidence allow. 7. You may senior devops engineer the shower and let water strike your incision when you arrive home at least once daily. Do not take a tub bath, sit in a hot tub or g o into a swimming pool until after your first recheck in the office. SPECIAL CARE INSTRUCTIONS: VERY IMPORTANT TO READ AND REVIEW A. Your surgical incision has been closed with a cosmetic suture under the skin that will dissolve in about 6 weeks. In 14 days, you can use a pair of clean scissors and cut the suture that is left outside of the skin at the ends of your incision. 1. The small skin tapes can be removed 7 days after surgery if they have not fallen off by that point. 2. You may keep the wound open to air as much as possible to promote healing after post-op day number 5 unless told otherwise by your doctor. 3. If you think the wound looks like it is becoming infected (redness or worsening drainage) and/or you are experiencing fever, chill or worsening back pain and muscle spasms, contact the office so that we may evaluate you as soon as possible. B. Complications are uncommon, but please contact us if you have any signs or symptoms of: 1. wound infection (fever higher than 102.5 degrees F, redness, separation of wound, drainage, or increasing pain from the incision) 2. blood clots in legs (pain, swelling, redness and warmth in legs) 3. urinary tract infection (fever higher than 102.5 degrees F, burning upon urination or increased frequency of urination) 4. nerve problems (inability to walk on your toes or heels, numbness, loss of bowel or bladder control) 5. any other symptoms that concern you C. Please call the office at if you have any concerns or questions about your operation or recovery. D. No smoking! Smoking drastically decreases the chance of a solid fusion. E. Do not take any anti-inflammatory medications (Indocin, Advil, Motrin, Aspirin, Naprosyn, etc.) as these may inhibit the chance of a solid fusion. Tylenol is okay to take for pain. MANAGING PAIN AFTER SPINAL SURGERY 1. Narcotic medication is intended for short-term use and will be provided for surgical pain. Surgical pain usually lasts for a period of 4-6 weeks. Narcotic medication includes Percocet, Vicodin, Darvocet, Tylenol #3 or Lortab. 2. Longer-term pain is more appropriately treated with non-narcotic medication such as Tylenol ES. 3. Muscle spasm is not appropriately treated with narcotics. Muscle relaxers such as Soma, Flexeril or Skelaxin can be used along with Tylenol ES. 4. Remember that we all live with some "aches and pains". This is not unusual or uncommon after an injury or as we get older. a. Back pain is expected and may include muscle spasms for 4 to 6 weeks after surgery. The pain should gradually improve. If the pain worsens for no apparent reason, please contact the office. b. Intermittent leg pain may also be experienced and should not be concerned about unless it worsens for no apparent reason. If so, please contact the office. 5. We will provide appropriate medication within the normal guidelines of their prescribed use. We will also be very cautious and aware of potential abuse and extended duration of patients' medication needs. a. Pain medications are for your comfort and to assist with sleep and rest so that the tissue can heal. They are not provided in order to return to normal activity and should not be used through the day. To do so or worsening pain at night can result from ongoing tissue damage and development of tolerance to the prescribed medicine. 6. Please allow 2-3 days to process refills. Prescriptions will not be mailed but must be picked up at the office. FOLLOW UP VISIT: Keep your scheduled follow-up appointment. Any questions, please call the office at . Pending Studies at Discharge: No Stand-Alone Forms: My [employer], Smoking Cessation Medications and DC Order Prescriptions: New tramadol 50 mg tablet 50 mg PO Q6H PRN (Reason: pain, moderate) Qty: 30 RF: 0 oxycodone 5 mg tablet 5 mg PO Q6H PRN (Reason: pain, severe) Qty: 30 RF: 0 Continued rizatriptan [Maxalt-SUPERVISOR REINFORCED STEEL PLACING] 10 mg tablet,disintegrating 10 mg PO Q2H PRN (Reason: migraines) RF: 0 levothyroxine 75 mcg tablet 75 mcg PO QAM RF: 0 multivitamin Tablet 1 tab PO QAM RF: 0 rosuvastatin [Crestor] 5 mg Tablet 5 mg PO HS RF: 0 tramadol 50 mg tablet 50 mg PO Q6H PRN (Reason: pain, moderate) Qty: 20 RF: 0 oxycodone 5 mg tablet 5 mg PO Q6H PRN (Reason: pain, severe) Qty: 20 RF: 0 gabapentin 300 mg Capsule 300 mg PO BID RF: 0 Discharge Orders: Discharge Order (Routine); Ordered 02/18/21 Ordered By: Ricardo Gasca Admission Data Admit Date/Time: 02/15/21 15:56 Attending Provider: Ricardo Gasca Admit Provider: Ricardo Gasca Primary Care Provider: Layla Duran Other Providers: Zhou Dimas ; Arnulfo Thomson ; Russ Epps
[2021-02-18 09:47] LABS: BUN Creatinine Ratio 15.2 (10-20); Calcium 9.4 mg/dl (8.5-10.1); Creatinine Clr Calc Pharmacy 68.6 ml/min; Est GFR (African American) 89.5 ml/min; Est GFR (Non-African American) 77.2 ml/min; Potassium 3.9 mmol/L (3.5-5.1)
[2021-02-18] MEDS: traMADol HCL 50 MG TABLET PO PRN (11:05)
[2021-02-18 11:59] LABS: Estimated Average Glucose 128 mg/dl; Hemoglobin A1C 6.1 % (4.5-5.6)
--- NOTE | 2021-02-18 13:20 | Hospitalist Progress Note ---
Date of Service February 18, 2021 Assessment & Plan (1) Back pain: (2) Lumbar disc herniation with radiculopathy: (3) Hyperlipidemia: (4) Hypothyroidism: Plan: This is a 60 who has a significant PMH of HLD, hypothyroidism, hx of raynauds who presented to ED 2/ 2/ to low back pain. MRI L Spine: Lumbar spine MRI without and with contrast, status post discectomy with overall improvement of the left neuroforaminal stenosis surrounding soft tissue edema at the surgical site, which may potentially result in transient impingement on L3-L4 spinal fluid. No evidence of infectious abnormality. Pt admitted to med/surg s/p L3-L4 decompression/fusion, POD #[address] Gasca pain/wound management per ortho encourage incentive spirometry monitor H&H post op Post operative anemia hgb 11.1, preo op 13.8 ebl 250ml; expected blood loss anemia Leukocytosis wbc 12k, likely reactive no s/sx of infection Elevated fasting glucose likely in setting of steroid use A1c this a.m. 6.1 Will relay this to PCP Dr. Duran HLD continue statin Hypothyroidism continue synthyroid DVT ppx: Dispo: per orho PCP: Layla Duran FULL CODE Pt was seen and examined in collaboration with Dr. Epps, please see addendum Thank you for this consultation. We will follow the patient with you during their hospital stay. You can reach a member of the [facility] Hospitalist Team 08/11 via hospitalist role on tiger text. Admission and Anticipated Discharge Date Admission Date: February 15, 2021 Supervising Physician Co-Signing Physician Notes Pt seen and examined by me, care coordinated with Vicky Asencio PA-C, pls refer to her note above for further detail. Pt is doing well. Patient was sitting up in chair and ready to be discharged at the time of bedside exam. She reports improvement in her LLE pain. She is alert, oriented, answering questions appropriately. Lungs are clear to auscultation b/l. Heart sounds regular. Abdomen soft, nontender, nondistended. Clean dressing over the lower back noted without soakage. Patient is being discharged per orthopedics. I have seen and examined the patient and have discussed the case with the provider above. I agree with the assessment and plan as stated. Subjective Patient was seen and examined in room 385-1. Follow-up low back pain s/p lumbar procedure POD #2. She is doing well this morning. Excited to go home. She is passing gas but has not yet had a bowel movement. She denies fever, chills, sweats, lightheadedness, dizziness chest pain, shortness of breath, nausea, vomiting, abdominal pain. She is tolerating diet. She is going home this morning. Review of Systems Review of Systems: All systems reviewed & are unremarkable except as noted in HPI & below Physical Exam Physical Exam: Gen: WD/WN, NAD, A&O x3 HEENT: Normocephalic, atraumatic, conjunctivae moist, sclerae anicteric, mucous membranes moist. Lung: Clear to Auscultation bilaterally, no wheezes/rales/rhonchi Heart: Regular rate, regular rhythm, no murmurs, rubs, or gallops Abdomen: Soft, NT, ND +BS x 4 Extremities: No edema, dressing CDI, MARVIN drain with sersosang drainage Skin: Warm, no rash, negative turgor. Results & Data Results & Data ([facility]) Vital Signs (Past 12 Hours) Vital Signs Temp Pulse Pulse Pulse Resp BP Pulse Ox 02/18/21 10:58 36.8 C 87 103 H 91 H 16 102/66 99 02/18/21 07:55 36.8 C 91 H 16 102/66 99 Laboratory Results Short CBC 02/18/21 Range/Units 08:49 WBC 12.40 H (4.8-10.8) K/uL Hgb 11.1 L (12.0-16.0) g/dL Hct 35.1 L (37-47) % Plt Count 258 (130-400) K/uL BMP 02/18/21 08:49 Sodium 139 Potassium 3.9 Chloride 107 Carbon Dioxide 26 BUN 13 Creatinine 0.82 Glucose 126 H Calcium 9.4 (1) Back pain Back pain laterality: left Back pain location: low back pain Chronicity: acute Sciatica laterality: sciatica of left side Sciatica presence: with sciatica Qualified Code(s): M54.42 - Lumbago with sciatica, left side
== END 2021-02-18 11:40 | disposition home or self-care (01) | DRG 454 ==
LOC: ED 10:18 → 3N 15:56

== ENCOUNTER 2022-03-08 05:49 | Observation (INO) ==
--- NOTE | 2022-02-22 16:23 | PAT Medication Instructions ---
Medication Instructions Date of Service February 22, 2022 Home Medications rizatriptan 10 mg disintegrating tablet (Maxalt-ELECTRICAL CONTROLS DESIGNER) 10 mg PO Q2H PRN multivitamin 1 tab PO QAM rosuvastatin 5 mg tablet (Crestor) 5 mg PO HS Continue as directed rizatriptan 10 mg disintegrating tablet (Maxalt-ELECTRICAL CONTROLS DESIGNER) 10 mg PO Q2H PRN(if needed) DO NOT take the morning of surgery multivitamin 1 tab PO QAM Take evening before surgery rosuvastatin 5 mg tablet (Crestor) 5 mg PO HS Other Notes NOTHING TO EAT OR DRINK AFTER MIDNIGHT. If you have any questions please call us at [phone] or [phone] or [phone] or [phone]
--- NOTE | 2022-02-25 12:50 | Anesthesiology Consultation ---
Date of Service February 25, 2022 Assessment & Plan (1) Encounter for pre-operative examination: COVID screening: Per assessment on 02/22: No known COVID-19 positive contacts or current COVID-19 related symptoms. Travel screen negative. Patient vaccinated. At surgeon discretion if preop Covid testing being done. Chart Review Chart Review: Acceptable Risk for Surgery and Patient seen in Pre Admission Testing History Surgery Operation Date: 03/08/22 07:45 Proposed Procedures p C4-C7 Anterior Cervical Discectomy and Fusion, Spinal Cord Monitoring - Ricardo Gasca DO Height/Weight Height: 5 ft 4 in Weight: 66.7 kg Allergies Allergy/AdvReac Type Severity Reaction Status Date / Time Sulfa (Sulfonamide Allergy Intermediate rash Verified 02/22/22 15:03 Antibiotics) Medications Home Medications Medication Instructions Recorded Confirmed Last Taken rizatriptan 10 mg disintegrating 10 mg PO Q2H PRN migraines 01/14/20 02/22/22 Unknown tablet (Maxalt-LOCOMOTIVE CRANE OPERATOR) multivitamin 1 tab PO QAM 03/18/20 02/22/22 02/15/21 rosuvastatin 5 mg tablet (Crestor) 5 mg PO HS 02/05/21 02/22/22 02/14/21 Past Medical History Medical History Hx of basal cell carcinoma Arm, nose Hyperlipidemia Hypothyroidism Previously on levothyroxine, discontinued d/t euthyroid off meds 02/19/22 T4 WNL, TSH mildly elevated at 4.36 Migraine Osteoarthritis Exercise / Class Metabolic Activity II 4-5 Yardwork/Stairs/Walk up hill Past Family History Family History Father Parkinson's disease Mother Lupus Stroke Grandmother (Paternal) Diabetes Breast cancer Grandmother (Maternal) Colorectal cancer Other No family history of adverse response to anesthesia Past Surgical History Surgical History H/O breast biopsy 2018 right breast (BENIGN) H/O tubal ligation History of breast augmentation History of colonoscopy History of femoral hernia repair Left femoral hernia repair (03/25/20): LMA#4 at [facility] [place] History of repair of ACL Left S/P epidural steroid injection S/P left knee arthroscopy S/P lumbar fusion S/P Mohs surgery for basal cell carcinoma Past Anesthesia History No Hx of Anesthesia Complications and No Family Hx of Anesthesia Complications History of PONV No Hx of PONV and No Hx of Motion Sickness STOP BANG Total 1 Social History Smoking Status: Never smoker Do You Dip or Chew Tobacco: No Hx Alcohol Use: Yes Alcohol type: beer and wine alcohol intake frequency: a few times a month Hx Substance Use: No substance use type: does not use Review of Systems Patient denies chest pain, shortness of breath, dyspnea on exertion, fever, ch ills, cough, wheezing, palpitations. Physical Exam Vital Signs VITALS BP 124/78 P 86 TEMP 98.1 SP02 100%RA RESP 18 PHYSICAL Full cervical extension range of motion. Full TMJ range of motion. TMD 3 finger breaths Mallampati Score 2 Dentition: intact, upper front veneers Lungs: clear throughout to auscultation Cardiac: regular rate and rhythm, no murmurs noted Spine: normal Carotid arteries: negative bruit Extremities: no edema Lab Results Anesthesia Preop Results Results Anesthesia Widget: WBC 7.18 K/ul (4.8-10.8) 02/25/22 Hgb 13.5 g/dl (12.0-16.0) 02/25/22 Hct 41.2 % (34.1-44.9) 02/25/22 Plt 228 K/uL (130-400) 02/25/22 PT 10.8 Seconds (9.0-12.0) 02/25/22 PTT 29.0 Seconds (21.0-31.0) 02/25/22 INR 1.0 (0.9-1.1) 02/25/22 Urine Color Dark Yellow 02/25/22 Urine Appearance Clear (Clear) 02/25/22 Urine pH 6.0 (4.5-7.5) 02/25/22 Urine Specific [place] 1.023 (1.000-1.030) 02/25/22 Urine Protein Negative (Negative) 02/25/22 Urine Glucose (UA) Negative (Negative) 02/25/22 Urine Ketones Trace (Negative) H 02/25/22 Urine Blood Negative (Negative) 02/25/22 Urine Nitrite Negative (Negative) 02/25/22 Urine Bilirubin Negative (Negative) 02/25/22 Urine Urobilinogen Negative (Negative) 02/25/22 Urine Leukocyte Esterase Negative (Negative) 02/25/22 Blood Type O Positive 02/25/22 Antibody Screen NEGATIVE 02/25/22 Testing Laboratory Results 02/19/22 SODIUM 143 POTASSIUM 4.7 CHLORIDE 105 CO2 25 BUN 18 CREATININE 0.9 GLUCOSE 114 FREE T4 1.0 TSH 4.36 Electrocardiogram Date: 02/25/22 NSR at 87bpm. NS STA. Chest X-Ray Date: 02/25/22 Findings: + NAD COVID-19 Risk Screen Screening Information COVID-19 Screen Date: 02/25/22 Exposure 21 Days Family/Household +COVID Last 21 Days: No Exposure 10 Days Any COVID Exposure Last 10 Days: No Symptoms Last 10 Days Experienced COVID Sx Last 10 Days: No + COVID 0-90 Days COVID + in Last 0-90 Days: No
[2022-03-08] MEDS ORDERED: ceFAZolin 2000MG 2,000 MG/15 ML SYR IV SCH (06:00)
[2022-03-08] MEDS ORDERED: LR 15ML/HR IV SCH (06:00)
[2022-03-08] MEDS ORDERED: ACETAMINOPHEN 500 MG TAB PO SCH (06:00)
[2022-03-08] MEDS ORDERED: GABAPENTIN 600 MG DOSE PO SCH (06:00)
[2022-03-08] MEDS ORDERED: fentaNYL citrate 100 MCG/2 ML VIAL ONE ×2 (07:01)
[2022-03-08] MEDS ORDERED: DEXAMETHASONE SOD INJ 4 MG/ML VIAL ONE (07:01)
[2022-03-08] MEDS ORDERED: PROPOFOL IV EMULSION 10 MG/ML 20 ML VIAL IV ONE ×2 (07:01→08:00)
[2022-03-08] MEDS ORDERED: ceFAZolin 330 MG/ML 1 GM VIAL ONE (07:01)
[2022-03-08] MEDS ORDERED: ePHEDrine sulfate 50 MG/ML SYR ONE (07:01)
[2022-03-08] MEDS ORDERED: SUCCINYLCHOLINE CHLORIDE 20 MG/ML 10 ML VIAL IV ONE (07:01)
[2022-03-08] MEDS ORDERED: PHENYLEPHRINE 100MCG/ML 5ML SYR ONE (07:01)
[2022-03-08] MEDS ORDERED: LIDOCAINE 2% MPF LOCAL 5 ML VIAL INFIL ONE (07:01)
[2022-03-08] MEDS ORDERED: ROCURONIUM BROMIDE 10 MG/ML 5 ML VIAL IV ONE (07:01)
[2022-03-08] MEDS ORDERED: ONDANSETRON INJ 2 MG/ML 2 ML VIAL ONE (07:01)
[2022-03-08] MEDS ORDERED: MIDAZOLAM HCL 1 MG/ML 2ML VIAL ONE (07:02)
[2022-03-08] MEDS ORDERED: MEPERIDINE HCL 25 MG/ML CARP/VIAL IV PRN (07:07)
[2022-03-08] MEDS ORDERED: ePHEDrine sulfate 50 MG/ML AMP IV PRN (07:07)
[2022-03-08] MEDS ORDERED: ATROPINE SULFATE 0.1 MG/ML 10ML SYR IV PRN (07:07)
[2022-03-08] MEDS ORDERED: ONDANSETRON INJ 2 MG/ML 2 ML VIAL IV PRN ×2 (07:07→11:38)
--- NOTE | 2022-03-08 07:29 | History & Physical Bridge Note ---
Date of Service March 08, 2022 History & Physical Bridge Note I have examined the patient, reviewed the History & Physical and in the interval since the performance of the History & Physical I have noted the following changes of clinical significance: no changes noted
--- NOTE | 2022-03-08 07:30 | History & Physical Report ---
Date of Service March 08, 2022 Assessment & Plan (1) Cervical stenosis of spinal canal: Plan: C4-C7 anterior cervical discectomy and fusion History of Present Illness Chief Complaint: Neck and bilateral arm pain Primary Care Provider: Layla Duran MD This is a 61-year-old female presents with chronic systolic and arm pain. Failed extensive course of nonoperative care is here for surgical invention. Allergies Allergy/AdvReac Type Severity Reaction Status Date / Time Sulfa (Sulfonamide Allergy Intermediate rash Verified 03/08/22 06:36 Antibiotics) Home Medications Medication Instructions Recorded Confirmed Type rizatriptan 10 mg disintegrating 10 mg PO Q2H PRN migraines 01/14/20 03/08/22 History tablet (Maxalt-ACADEMIC DEAN) multivitamin 1 tab PO QAM 03/18/20 03/08/22 History rosuvastatin 5 mg tablet (Crestor) 5 mg PO QAM 02/05/21 03/08/22 History ibuprofen 200 mg tablet (Advil) 400 mg PO Q6H PRN Pain 03/08/22 03/08/22 History Past Med/Surg History Medical History Hx of basal cell carcinoma Arm, nose Hyperlipidemia Hypothyroidism Previously on levothyroxine, discontinued d/t euthyroid off meds 02/19/22 T4 WNL, TSH mildly elevated at 4.36 Migraine Osteoarthritis Surgical History H/O breast biopsy 2018 right breast (BENIGN) H/O tubal ligation History of breast augmentation History of colonoscopy History of femoral hernia repair Left femoral hernia repair (03/25/20): [place] [facility] [place] of repair of ACL Left S/P epidural steroid injection S/P left knee arthroscopy S/P lumbar fusion S/P Mohs surgery for basal cell carcinoma Family History Father Parkinson's disease Mother Lupus Stroke Grandmother (Paternal) Diabetes Breast cancer Grandmother (Maternal) Colorectal cancer Other No family history of adverse response to anesthesia Social History Smoking Status: Never smoker Second Hand Exposure: No; Do You Dip or Chew Tobacco: No; Tobacco Cessation Education Requested by Patient: No Hx Alcohol Use: Yes Alcohol type: beer and wine Hx Substance Use: No Preferred Language: Armenian Communication Ability: Effective Meter/Relay Technician Required: No Beliefs That Will Affect Care: None marital status: Current Living Situation: Spouse current occupational status: employed current occupation: RN How many Children do You have: 2 Other Information That Helps Us Care for You: No Feels Safe at Home: Yes Safety Concerns: Feels Safe At This Time Assistive Devices: None Physical Exam Physical Exam: Patient is alert and oriented Heart regular in rhythm Lungs clear Results & Data Results & Data ([facility]) Vital Signs (Past 12 Hours) Vital Signs Temp Pulse Resp BP Pulse Ox O2 Del Method 03/08/22 06:31 36.7 C 84 18 142/87 H 100 Room Air
[2022-03-08] MEDS ORDERED: HYDROmorphone INJ 2 MG/ML SYR/VIAL ONE (08:07)
[2022-03-08] MEDS ORDERED: LARYING-O-JET KIT (LTA) ONE (08:42)
[2022-03-08] MEDS ORDERED: FLOSEAL HEMOSTATIC MATRIX 10ML TOP ONE (09:16)
--- NOTE | 2022-03-08 09:26 | Operative Report ---
Post Operative Report Pre & Post Diagnosis Operation Date: 03/08/22 07:45 Pre-Op Diagnosis: Cervical spinal stenosis with radiculopathy Post-Op Diagnosis: Same I identified the patient and participated in the time-out.: Yes Procedure Operation Date: 03/08/22 07:45 Actual Procedures #1 anterior cervical discectomy with bilateral foraminotomies C4-C5, C5-C6 and C6-C7. #2 anterior cervical arthrodesis C4-C5, C5-C6 and C6-C7. #3 placement of Spira 7 mm cage at C4-C5 6 mm cage at C5-C6 and 7 mm cage at C6-C7. All cages filled with I factor. #4 application of K2 M plate and screws from C4-C7. Surgeon Ricardo Gasca, Wood Barker Shilpa Menjivar Estimated Blood Loss 10 Findings Consistent with Post-Op Diagnosis Specimens None Indications This is a 61-year-old female who presents above-mentioned diagnosis after failing course of nonoperative care she is here for the above-mentioned procedure. Description of Procedure Patient met with identified informed consent obtained. Patient was then taken to the operative suite underwent ablation placed in the supine position on the Duane table with head Isbell cigar head perforator. All bony prominences well-padded eyes inspected to ensure no external pressure placed upon them. This point anterior cervical spine was prepped and draped in sterile fashion. The assistance of fluoroscopy none for the C5-C6 disc base and a transverse incision was placed along the right anterior aspect of the cervical spinal overlying this region. Blunt dissection with assistance of bipolar cautery was then performed down to and exposing the anterior cervical spine from C4-C7. A self-retaining tractors placed. I then approached the C4-C5 disc base and into complete discectomy was performed down to the uncovertebral joints bilaterally. Elton distracting pins were utilized to assist in visualization. Removed all posterior fibers longitudinal ligament bilateral foraminotomies performed. Endplates burred to subcortically bone and a 7 mm spiral cage filled I factor tapped in position. Then proceeded to C5-C6. Again complete discectomy performed Elton distraction pins utilized. Removed all posterior fibers longitudinal ligament bilateral foraminotomies performed. Endplates burred to subcortical bleeding bone and a 6 mm spiral cage with I factor tapped in position. Lastly approach C6-C7. Again complete discectomy performed out to the uncovertebral's bilaterally. Elton distractor pins again utilized. Removed all posterior annular fibers longitudinal ligament bilateral foraminotomies performed. Endplates burred to subcortically bone and a 7 mm spiral cage with I factor tapped in position. Distracting apparatus was removed. All anterior osteophytes burred to smooth cortical surface neck K2 M plate and screws locked into position with fluoroscopic visualization. The incision was then copiously irrigated explored to ensure no damage to surrounding structures remaining bleeding. 10 round MARVIN drain inserted. The incision was then closed with 2 Vicryl in a fashion of 4 Monocryl for fascial closure. Steri-Strip sterile dressings placed. Patient was then taken to PACU in stable condition. Please note spinal cord monitoring was utilized at the procedure no changes noted. Lastly Shilpa Menjivar was present at the entire surgeon while the patient positioning complex portion of the surgery and final skin closure. I attest to the content of the Intraoperative Record and any orders documented therein. Any exceptions are noted below.
[2022-03-08] MEDS: fentaNYL citrate 100 MCG/2 ML VIAL IV PRN ×4 (09:59→10:19)
[2022-03-08] MEDS: MoRPHine SULFATE 10 MG/ML CARP/VIAL IV PRN ×5 (10:24→10:49)
--- NOTE | 2022-03-08 11:06 | Anesthesiology Progress Note ---
Date of Service March 08, 2022 Anesthesia Post Procedure Vital Signs Vital Signs: Temp Pulse Pulse Resp BP Pulse Ox O2 Del Method 03/08/22 10:50 98 H 21 158/100 H 100 Nasal Cannula 03/08/22 10:40 99 H 16 164/108 H 100 Nasal Cannula 03/08/22 10:15 168/94 H 03/08/22 10:30 100 H 17 167/101 H 96 Room Air 03/08/22 10:20 98 H 13 177/98 H 98 Room Air 03/08/22 10:10 99 H 14 175/106 H 98 Room Air 03/08/22 10:00 95 H 13 167/102 H 100 Oxymask 03/08/22 09:50 98 H 11 L 182/106 H 100 Oxymask 03/08/22 09:40 89 11 L 151/90 H 100 Oxymask 03/08/22 09:34 36.0 C L 86 16 136/78 100 Oxymask 03/08/22 06:31 36.7 C 84 18 142/87 H 100 Room Air O2 Flow Rate 03/08/22 10:50 2 03/08/22 10:40 2 03/08/22 10:15 03/08/22 10:30 03/08/22 10:20 03/08/22 10:10 03/08/22 10:00 6 03/08/22 09:50 6 03/08/22 09:40 6 03/08/22 09:34 6 03/08/22 06:31 Pain Intensity Left Neck: Pain Intensity: 4 Right Posterior Neck: Pain Intensity: 6 Transfer of Care Handoff Completed per policy Notes Mental Status: alert / awake / arousable Patient Amnestic to Procedure: Yes Nausea / Vomiting: adequately controlled Pain: adequately controlled Airway Patency, RR, SpO2: stable & adequate BP & HR: stable & adequate Hydration State: stable & adequate Anesthetic Complications: no major complications apparent and Pt Satisfied with anesthetic care
--- NOTE | 2022-03-08 11:32 | Fluoroscopy Report ---
FL cervical 2-3V CLINICAL HISTORY: C4-C7 ACDF COMPARISON STUDY: None. FLUOROSCOPY TIME: 8 seconds. FLUOROSCOPIC IMAGES: 2 FINDINGS: Fluoroscopy was provided during C4-C7 anterior discectomy and fusion. Hardware is intact. E ndotracheal tube is partially imaged. Surgical drain is in place. IMPRESSION: Fluoroscopy provided during C4-C7 anterior discectomy and fusion. ACT 112: Negative or not required by law. Electronically signed by: Wes Delaney M.D. 03/08/2022 11:31 AM
[2022-03-08] MEDS ORDERED: ONDANSETRON 4 MG OD TAB PO PRN (11:38)
[2022-03-08] MEDS ORDERED: RACEPINEPHRINE 2.25% NEBU SOLN 0.5 ML VIAL INH PRN (11:38)
[2022-03-08] MEDS ORDERED: dexAMETHasone 8 MG in SYRINGE 0 ML IV PRN (11:38)
[2022-03-08] MEDS ORDERED: NALOXONE HCL 0.4 MG/1 ML VIAL/CARP IV PRN (11:38)
[2022-03-08] MEDS ORDERED: ALUMINUM/MAGNESIUM SUSP 30 ML UDC PO PRN (11:38)
[2022-03-08] MEDS ORDERED: diphenhydrAMINE Capsule 25 MG CAP PO PRN (11:38)
[2022-03-08] MEDS ORDERED: HYDROmorphone INJ 1 MG/ML SYRINGE IV PRN (11:38)
[2022-03-08] MEDS ORDERED: MAGNESIUM HYDROXIDE SUSP 30 ML UDC PO PRN (11:38)
[2022-03-08] MEDS ORDERED: FAMOTIDINE 20 MG TAB PO PRN (11:38)
[2022-03-08] MEDS ORDERED: PROMETHAZINE HCL 12.5 MG in SODIUM CHLORIDE 0.9% 50 ML IV PRN (11:38)
[2022-03-08] MEDS ORDERED: METOCLOPRAMIDE HCL INJ 5 MG/ML 2 ML VIAL IV PRN (11:38)
[2022-03-08] MEDS ORDERED: ACETAMINOPHEN 500 MG TAB PO PRN (11:38)
[2022-03-08] MEDS ORDERED: SOD PHOSPHATE/SOD BIPHOSPHATE ENEMA 132 ML BTL PR PRN (11:38)
[2022-03-08] MEDS ORDERED: ACETAMINOPHEN 1,000 MG/100 ML VIAL IV PRN (11:38)
[2022-03-08] MEDS ORDERED: LORazepam 0.5 MG in SYRINGE 0 ML IV PRN (11:38)
[2022-03-08] MEDS ORDERED: LORazepam 0.5 MG TAB PO PRN (11:38)
[2022-03-08] MEDS ORDERED: bisacodyL 10 MG SUPP PR PRN (11:38)
[2022-03-08] MEDS ORDERED: HYDROmorphone INJ 0.5 MG/0.5 ML SYR IV PRN (11:38)
[2022-03-08] MEDS: SODIUM CHLORIDE 0.9% 1000ML 1,000 ML IV SCH ×2 (11:43→22:59)
[2022-03-08] MEDS ORDERED: RIZATRIPTAN BENZOATE MLT 10 MG TAB PO PRN (13:03)
[2022-03-08] MEDS: hydrOXYzine HCl 25 MG TAB PO PRN (14:48)
[2022-03-08] MEDS: ceFAZolin 1000MG 1,000 MG/7.5 ML SYR IV SCH ×2 (14:48→22:41)
[2022-03-08] MEDS: traMADol HCL 50 MG TABLET PO PRN (20:10)
[2022-03-08] MEDS ORDERED: COUGH DROP (SUGAR FREE) LOZ 24 LOZ/1 BOX BUCCAL ONE ×2 (20:40→20:41)
[2022-03-08] MEDS ORDERED: DOCUSATE SODIUM/SENNA 50/8.6MG TAB PO SCH (21:00)
[2022-03-09] MEDS: traMADol HCL 50 MG TABLET PO PRN ×2 (00:01→10:33)
[2022-03-09] MEDS: oxyCODONE HCL IR 5 MG TAB (IMMEDIATE RELEASE) PO PRN ×2 (02:12→06:12)
[2022-03-09] MEDS: hydrOXYzine HCl 25 MG TAB PO PRN ×2 (02:20→10:37)
[2022-03-09] MEDS ORDERED: POLYETHYLENE (MIRALAX) 17 GM PACK PO SCH (06:00)
[2022-03-09] MEDS ORDERED: ROSUVASTATIN CALCIUM 5 MG TAB PO SCH (09:00)
[2022-03-09] MEDS ORDERED: MULTIVITAMIN TAB PO SCH (09:00)
[2022-03-09] MEDS ORDERED: dexAMETHasone 6 MG in SYRINGE 0 ML IV SCH (09:00)
--- NOTE | 2022-03-09 09:24 | Discharge Summary ---
Date of Service March 09, 2022 Admission HPI Per Admitting Provider This is a 61-year-old female presents with chronic systolic and arm pain. Failed extensive course of nonoperative care is here for surgical invention. Admission Exam (Per Admitting) Constitutional WD/WN, vitals as above Eyes normal visual pittman by confrontation ENMT external ear and nose normal, oropharynx normal Neck normal visual inspection Respiratory normal respiratory effort Cardiovascular Extremities: normal capillary refill Gastrointestinal (Abdomen) Inspection/Auscultation: abdomen normal to inspection Musculoskeletal Spine: + limited cervical ROM Extremities: extremities normal to inspection Skin no rashes, warm and dry Neurologic normal touch/pain/proprioception and moves all extremities Psychiatric A+Ox3, euthymic affect Eye Contact: good eye contact Speech: normal rate/rhythm/volume of speech Discharge Data Procedures Performed Operation Date: 03/08/22 07:45 Actual Procedures p C4-C7 Anterior Cervical Discectomy and Fusion, Spinal Cord Monitoring(Not Applicable) - Ricardo Gasca DO Hospital Course (1) Cervical stenosis of spinal canal: Patient is being discharged home on postop day 1 status post ACDF C4-C7. She had an uneventful hospital course. Arm symptoms improved. She is up and ambulatory and voiding without issues. Denies dysphonia or dysphagia. Discharge Instructions ACTIVITY RECOMMENDATIONS: SELF CARE INSTRUCTIONS AFTER CERVICAL FUSIONS 1. No smoking. Smoking drastically decreases the chance of a solid fusion. 2. No bending, lifting more than 5 pounds, or twisting (roll like a log when turning in bed). 3. You may shower 3 days after surgery. Thoroughly dry wound. Do not soak in the tub. 4. Cervical collar: Must be worn at all times including sleeping. You may remove the brace only to bath, eat and if you are sitting in a recliner. 5. Please walk as much as you can for exercise. Gradually increase the distance that you walk as your endurance increases. SPECIAL CARE INSTRUCTIONS: VERY IMPORTANT TO READ AND REVIEW A. Do not take any anti-inflammatory medications (i.e. Indocin, Advil, Aspirin, Naprosyn, Aleve, Motrin, etc.) as these may inhibit the chance of a solid fusion. Tylenol is okay to take. B. Your surgical incision has been closed with a cosmetic suture under the skin that will dissolve in about 6 weeks. In 14 days, you can use a pair of clean scissors and cut the suture that is left outside of the skin at the ends of your incision. C. Complications are uncommon, but please contact us if you have any signs or symptoms of: 1. wound infection (fever higher than 102.5 degrees F, redness, separation of wound, drainage, or increasing pain from the incision) 2. blood clots in legs (pain, swelling, redness and warmth in legs) 3. urinary tract infection (fever higher than 102.5 degrees, burning upon urination or increased frequency of urination) 4. nerve problems (inability to walk on your toes or heels, numbness, loss of bowel or bladder control) 5. any other symptoms that concern you. D. Please call the office at if you have any concerns or questions about your operation or recovery. MANAGING PAIN AFTER SPINAL SURGERY 1. Narcotic medication is intended for short-term use and will be provided for surgical pain. Surgical pain usually lasts for a period of 4-6 weeks. Narcotic medication includes Percocet, Vicodin, Darvocet, Tylenol #3 or Lortab. 2. Longer-term pain is more appropriately treated with non-narcotic medication such as Tylenol ES. 3. Muscle spasm is not appropriately treated with narcotics. Muscle relaxers such as Soma, Flexeril or Skelaxin can be used along with Tylenol ES. 4. Remember that we all live with some "aches and pains". This is not unusual or uncommon after an injury or as we get older. 5. We will provide appropriate medication within the normal guidelines of their prescribed use. We will also be very cautious and aware of potential abuse and extended duration of patients' medication needs. 6. Please allow 2-3 days to process refills. Prescriptions will not be mailed but must be picked up at the office. FOLLOW UP VISIT: Keep your scheduled follow-up appointment. Any questions, please call the office at .
== END 2022-03-09 12:09 | disposition home or self-care (01) ==
LOC: ASU 05:49 → 3E 09:29 → INTOOBSV 09:29